=== PATIENT | male | born 1950 | race Caucasian/White ===

== ENCOUNTER → 2018-04-11 10:07 | Outpatient (CLI) | payer MEDICARE, SELFPAY ==
[2018-04-11 10:56] LABS: Hematocrit 43.3 % (41-53); Mean Corpuscular HGB Conc 34.7 % (30-36); Mean Corpuscular Hemoglobin 31.7 PG (26-34); Mean Corpuscular Volume 91.3 fL (80-100); Platelet Count 168 X10^3/uL (150-400); Red Blood Cell Count 4.74 X10^6/uL (4.5-5.9); Red Cell Distribution Width 13.1 % (11.6-14.8); White Blood Cell Count 5.2 X10^3/uL (4.5-11.0)
[2018-04-11 11:28] LABS: Alanine Aminotransferase 38 IU/L (21-72); Albumin 4.5 g/dL (3.5-5.0); Albumin Globulin Ratio 1.6 (1.0-2.8); Alkaline Phosphatase 132 U/L (38-126); Aspartate Aminotransferase 29 IU/L (17-59); BUN Creatinine Ratio 18.3 (6-22); Bilirubin Total 0.4 mg/dL (0.2-1.3); Blood Urea Nitrogen 11 mg/dL (9-20); Calcium 9.2 mg/dL (8.4-10.2); Carbon Dioxide 31 mmol/L (22-32); Chloride 95 mmol/L (98-107); Cholesterol 169 mg/dL (140-199); Estimated Glomerular Filt Rate > 60.0 mL/min (>60); Globulin 2.8 g/dL (1.7-4.1); Glucose 279 mg/dL (80-110); HDL Cholesterol 28 mg/dL (40-60); HEMOLYSIS < 15 (0-50); Potassium 4.7 mmol/L (3.4-5.1); Sodium 139 mmol/L (137-145); Total Protein 7.3 g/dL (6.3-8.2); Triglycerides 493 mg/dL (35-150)
[2018-04-11 11:35] LABS: Hemoglobin A1C% w Est Avg Glu 9.8 % (4.0-6.0)
[2018-04-11 11:50] LABS: Prostate Specific Antigen Scrn 0.787 ng/mL (0.1-4.0)
== END ==
PROVIDERS: PCP Family Medicine; Visit Provider Family Medicine
DX: I10 Essential (primary) hypertension (principal); E11.65 Type 2 diabetes mellitus with hyperglycemia; Z12.5 Encounter for screening for malignant neoplasm of prostate; Z79.899 Other long term (current) drug therapy
CPT/HCPCS: 36415; 80053; 80061; 83036; 85027; G0103

== ENCOUNTER → 2018-08-26 09:48 | Outpatient (CLI) | payer MEDICARE, SELFPAY ==
[2018-08-26 10:49] LABS: Add Manual Diff / Slide Review NO; Basophils Percent Auto 1.2 % (0-2); Eosinophils Percent Auto 3.3 % (2-4); Hematocrit 44.2 % (41-53); Hemoglobin 15.1 g/dL (13.5-17.5); Lymphocytes Percent Auto 22.4 % (25-40); Mean Corpuscular HGB Conc 34.1 % (30-36); Mean Corpuscular Hemoglobin 31.4 PG (26-34); Mean Corpuscular Volume 92.2 fL (80-100); Monocytes Percent Auto 9.2 % (3-14); Neutrophils Absolute Auto 3300 /uL (3000-5900); Neutrophils Percent Auto 63.9 % (50-75); Platelet Count 210 X10^3/uL (150-400); Red Blood Cell Count 4.79 X10^6/uL (4.5-5.9); Red Cell Distribution Width 13.5 % (11.6-14.8); White Blood Cell Count 5.2 X10^3/uL (4.5-11.0)
[2018-08-26 10:54] LABS: Alanine Aminotransferase 41 IU/L (21-72); Albumin 4.6 g/dL (3.5-5.0); Albumin Globulin Ratio 1.6 (1.0-2.8); Alkaline Phosphatase 121 U/L (38-126); Aspartate Aminotransferase 38 IU/L (17-59); Bilirubin Total 0.5 mg/dL (0.2-1.3); Blood Urea Nitrogen 12 mg/dL (9-20); Calcium 9.1 mg/dL (8.4-10.2); Carbon Dioxide 33 mmol/L (22-32); Chloride 96 mmol/L (98-107); Cholesterol 153 mg/dL (140-199); Estimated Glomerular Filt Rate > 60.0 mL/min (>60); Globulin 2.9 g/dL (1.7-4.1); Glucose 276 mg/dL (80-110); HDL Cholesterol 28 mg/dL (40-60); HEMOLYSIS < 15 (0-50); LDL Cholesterol Calculated 69 mg/dL (<100); Potassium 4.7 mmol/L (3.4-5.1); Sodium 142 mmol/L (137-145); Total Protein 7.5 g/dL (6.3-8.2); Triglycerides 281 mg/dL (35-150)
[2018-08-26 11:21] LABS: Prostate Specific Antigen 0.949 ng/mL (0.10-4.00)
== END ==
PROVIDERS: PCP Family Medicine; Visit Provider Family Medicine
DX: E11.65 Type 2 diabetes mellitus with hyperglycemia (principal); I10 Essential (primary) hypertension; Z12.5 Encounter for screening for malignant neoplasm of prostate
CPT/HCPCS: 36415; 80053; 80061; 84153; 85025

== ENCOUNTER → 2019-03-17 11:17 | Outpatient (CLI) | payer MEDICARE, SELFPAY ==
--- NOTE | 2019-03-17 | DI.RAD.S_ITS ---
PROCEDURE: XR SHOULDER RT MIN 2V INDICATIONS: SHOULDER PAIN TECHNIQUE: 3 views of the shoulder were acquired. COMPARISON: [facility], , SHOULDER MINIMUM 2VIEW RIGHT, 12/23/2017, 8:51. FINDINGS: Bones: No fractures or dislocations. No suspicious bony lesions. Mild a.c. joint degenerative arthritis. Visualized ribs appear intact. Soft tissues: No suspicious soft tissue calcifications. IMPRESSION: Mild a.c. joint degenerative arthritis. No acute bony abnormality of the right shoulder. Dictated by: Garo Curiel M.D. on 03/17/2019 at 17:28 Approved by: Garo Curiel M.D. on 03/17/2019 at 17:29
== END ==
PROVIDERS: Family Provider Family Medicine; PCP Family Medicine; Visit Provider Family Medicine
DX: M25.511 Pain in right shoulder (principal); M19.011 Primary osteoarthritis, right shoulder
CPT/HCPCS: 73030

== ENCOUNTER → 2019-07-29 08:57 | Outpatient (CLI) | payer MEDICARE, SELFPAY ==
[2019-07-29 09:23] LABS: Add Manual Diff / Slide Review NO; Basophils Absolute Auto 100 /uL (0-100); Basophils Percent Auto 1.2 % (0-2); Eosinophils Absolute Auto 200 /uL (0-450); Eosinophils Percent Auto 3.5 % (2-4); Hemoglobin 15.3 g/dL (13.5-17.5); Lymphocytes Absolute Auto 1200 /uL (1100-4500); Lymphocytes Percent Auto 23.9 % (25-40); Mean Corpuscular HGB Conc 34.8 % (30-36); Mean Corpuscular Volume 92.1 fL (80-100); Monocytes Absolute Auto 600 /uL (0-900); Monocytes Percent Auto 10.9 % (3-14); Neutrophils Absolute Auto 3100 /uL (1500-7000); Neutrophils Percent Auto 60.5 % (50-75); Platelet Count 199 X10^3/uL (150-400); Red Blood Cell Count 4.77 X10^6/uL (4.5-5.9); Red Cell Distribution Width 13.2 % (11.6-14.8); White Blood Cell Count 5.2 X10^3/uL (4.5-11.0)
[2019-07-29 10:03] LABS: Alanine Aminotransferase 40 IU/L (21-72); Albumin 4.4 g/dL (3.5-5.0); Albumin Globulin Ratio 1.4 (1.0-2.8); Alkaline Phosphatase 109 U/L (38-126); Aspartate Aminotransferase 38 IU/L (17-59); Bilirubin Total 0.4 mg/dL (0.2-1.3); Blood Urea Nitrogen 14 mg/dL (9-20); Calcium 9.3 mg/dL (8.4-10.2); Carbon Dioxide 27 mmol/L (22-32); Chloride 102 mmol/L (98-107); Cholesterol 150 mg/dL (140-199); Estimated Glomerular Filt Rate > 60.0 mL/min (>60); Globulin 3.1 g/dL (1.7-4.1); Glucose 164 mg/dL (80-110); HDL Cholesterol 28 mg/dL (40-60); HEMOLYSIS 15 (0-50); LDL Cholesterol Calculated 78 mg/dL (<100); Potassium 4.2 mmol/L (3.4-5.1); Sodium 138 mmol/L (137-145); Total Protein 7.5 g/dL (6.3-8.2); Triglycerides 220 mg/dL (35-150)
== END ==
PROVIDERS: PCP Family Medicine; Visit Provider Family Medicine
DX: E11.65 Type 2 diabetes mellitus with hyperglycemia (principal); E66.9 Obesity, unspecified; I10 Essential (primary) hypertension; Z79.899 Other long term (current) drug therapy
CPT/HCPCS: 36415; 80053; 80061; 85025

== ENCOUNTER → 2019-10-20 10:57 | Outpatient (CLI) | payer MEDICARE, SELFPAY ==
[2019-10-20 11:37] LABS: Add Manual Diff / Slide Review NO; Basophils Absolute Auto 100 /uL (0-100); Basophils Percent Auto 1.1 % (0-2); Eosinophils Absolute Auto 300 /uL (0-450); Eosinophils Percent Auto 6.3 % (2-4); Lymphocytes Absolute Auto 1200 /uL (1100-4500); Lymphocytes Percent Auto 22.1 % (25-40); Mean Corpuscular Hemoglobin 30.8 PG (26-34); Mean Corpuscular Volume 90.8 fL (80-100); Monocytes Absolute Auto 500 /uL (0-900); Neutrophils Absolute Auto 3300 /uL (1500-7000); Neutrophils Percent Auto 61.5 % (50-75); Platelet Count 181 X10^3/uL (150-400); Red Blood Cell Count 5.18 X10^6/uL (4.5-5.9); Red Cell Distribution Width 13.6 % (11.6-14.8); White Blood Cell Count 5.4 X10^3/uL (4.5-11.0)
[2019-10-20 12:07] LABS: Alanine Aminotransferase 32 IU/L (<50); Albumin 4.7 g/dL (3.5-5.0); Albumin Globulin Ratio 1.7 (1.0-2.8); Alkaline Phosphatase 74 U/L (38-126); Aspartate Aminotransferase 34 IU/L (17-59); Bilirubin Total 0.7 mg/dL (0.2-1.3); Blood Urea Nitrogen 14 mg/dL (9-20); Calcium 9.2 mg/dL (8.4-10.2); Carbon Dioxide 24 mmol/L (22-32); Chloride 104 mmol/L (98-107); Cholesterol 158 mg/dL (140-199); Estimated Glomerular Filt Rate > 60.0 mL/min (>60); Globulin 2.7 g/dL (1.7-4.1); Glucose 137 mg/dL (80-110); HDL Cholesterol 30 mg/dL (40-60); HEMOLYSIS 15 (0-50); LDL Cholesterol Calculated 85 mg/dL (<100); Potassium 4.5 mmol/L (3.4-5.1); Sodium 139 mmol/L (137-145); Total Protein 7.4 g/dL (6.3-8.2); Triglycerides 217 mg/dL (35-150)
[2019-10-20 12:39] LABS: Prostate Specific Antigen 0.962 ng/mL (0.10-4.00)
== END ==
PROVIDERS: PCP Family Medicine; Visit Provider Family Medicine
DX: E11.65 Type 2 diabetes mellitus with hyperglycemia (principal); I10 Essential (primary) hypertension
CPT/HCPCS: 36415; 80053; 80061; 84153; 85025

== ENCOUNTER → 2020-07-21 08:07 | Outpatient (CLI) | payer MEDICARE, SELFPAY ==
[2020-07-21 08:37] LABS: Hemoglobin 14.4 g/dL (13.5-17.5); Mean Corpuscular HGB Conc 34.2 % (30-36); Mean Corpuscular Volume 93.4 fL (80-100); Platelet Count 197 X10^3/uL (150-400); Red Cell Distribution Width 13.1 % (11.6-14.8); White Blood Cell Count 5.9 X10^3/uL (4.5-11.0)
[2020-07-21 08:55] LABS: Alanine Aminotransferase 32 IU/L (<50); Albumin 4.6 g/dL (3.5-5.0); Albumin Globulin Ratio 1.7 (1.0-2.8); Alkaline Phosphatase 86 U/L (38-126); Aspartate Aminotransferase 37 IU/L (17-59); BUN Creatinine Ratio 26.9 (6-22); Bilirubin Total 0.6 mg/dL (0.2-1.3); Blood Urea Nitrogen 18 mg/dL (9-20); Calcium 9.4 mg/dL (8.4-10.2); Carbon Dioxide 30 mmol/L (22-32); Chloride 97 mmol/L (98-107); Cholesterol 154 mg/dL (140-199); Estimated Glomerular Filt Rate > 60.0 mL/min (>60); Globulin 2.7 g/dL (1.7-4.1); Glucose 169 mg/dL (80-110); HDL Cholesterol 32 mg/dL (40-60); HEMOLYSIS < 15 (0-50); LDL Cholesterol Calculated 59 mg/dL (<100); Potassium 4.5 mmol/L (3.4-5.1); Sodium 137 mmol/L (137-145); Total Protein 7.3 g/dL (6.3-8.2); Triglycerides 315 mg/dL (35-150)
[2020-07-21 09:24] LABS: Prostate Specific Antigen 0.838 ng/mL (0.10-4.00)
== END ==
PROVIDERS: PCP Family Medicine; Referring Provider Family Medicine; Visit Provider Family Medicine
DX: E11.65 Type 2 diabetes mellitus with hyperglycemia (principal); I10 Essential (primary) hypertension; Z79.899 Other long term (current) drug therapy; Z12.5 Encounter for screening for malignant neoplasm of prostate
CPT/HCPCS: 36415; 80053; 80061; 84153; 85027

== ENCOUNTER → 2021-04-07 08:25 | Outpatient (CLI) | payer MEDICARE, SELFPAY ==
[2021-04-07 09:32] LABS: Add Manual Diff / Slide Review NO; Basophils Absolute Auto 0 /uL (0-100); Eosinophils Absolute Auto 200 /uL (0-450); Eosinophils Percent Auto 4.2 % (2-4); Hemoglobin 15.2 g/dL (13.5-17.5); Lymphocytes Absolute Auto 1200 /uL (1100-4500); Lymphocytes Percent Auto 23.4 % (25-40); Mean Corpuscular HGB Conc 34.5 % (30-36); Monocytes Absolute Auto 500 /uL (0-900); Monocytes Percent Auto 10.9 % (3-14); Neutrophils Absolute Auto 3000 /uL (1500-7000); Neutrophils Percent Auto 60.5 % (50-75); Platelet Count 182 X10^3/uL (150-400); Red Blood Cell Count 4.73 X10^6/uL (4.5-5.9); White Blood Cell Count 4.9 X10^3/uL (4.5-11.0)
[2021-04-07 09:36] LABS: Hemoglobin A1C% w Est Avg Glu 11.5 % (4.0-6.0)
[2021-04-07 09:46] LABS: Alanine Aminotransferase 40 IU/L (<50); Albumin 4.4 g/dL (3.5-5.0); Albumin Globulin Ratio 1.3 (1.0-2.8); Alkaline Phosphatase 133 U/L (38-126); Aspartate Aminotransferase 55 IU/L (17-59); BUN Creatinine Ratio 25.6 (6-22); Bilirubin Total 0.5 mg/dL (0.2-1.3); Blood Urea Nitrogen 11 mg/dL (9-20); Calcium 9.3 mg/dL (8.4-10.2); Carbon Dioxide 28 mmol/L (22-32); Chloride 100 mmol/L (98-107); Cholesterol 139 mg/dL (140-199); Estimated Glomerular Filt Rate > 60.0 mL/min (>60); Globulin 3.3 g/dL (1.7-4.1); Glucose 230 mg/dL (80-110); HDL Cholesterol 28 mg/dL (40-60); HEMOLYSIS 24 (0-50); LDL Cholesterol Calculated 61 mg/dL (<100); Potassium 4.3 mmol/L (3.4-5.1); Sodium 136 mmol/L (137-145); Total Protein 7.7 g/dL (6.3-8.2); Triglycerides 251 mg/dL (35-150)
[2021-04-07 10:13] LABS: Prostate Specific Antigen Scrn 0.785 ng/mL (0.1-4.0)
== END ==
PROVIDERS: PCP Family Medicine; Referring Provider Family Medicine; Visit Provider Family Medicine
DX: E11.65 Type 2 diabetes mellitus with hyperglycemia (principal); E78.1 Pure hyperglyceridemia; I10 Essential (primary) hypertension; E66.9 Obesity, unspecified; Z79.899 Other long term (current) drug therapy; M12.89 Other specific arthropathies, not elsewhere classified, multiple sites; R07.9 Chest pain, unspecified; Z12.5 Encounter for screening for malignant neoplasm of prostate
CPT/HCPCS: 36415; 80053; 80061; 83036; 85025; G0103

== ENCOUNTER → 2021-11-10 08:18 | Outpatient (CLI) | payer MEDICARE, SELFPAY ==
[2021-11-10 08:43] LABS: Add Manual Diff / Slide Review NO; Basophils Absolute Auto 100 /uL (0-100); Basophils Percent Auto 1.1 % (0-2); Eosinophils Absolute Auto 200 /uL (0-450); Eosinophils Percent Auto 3.4 % (2-4); Hematocrit 44.9 % (41-53); Hemoglobin 15.2 g/dL (13.5-17.5); Lymphocytes Absolute Auto 1200 /uL (1100-4500); Lymphocytes Percent Auto 22.6 % (25-40); Mean Corpuscular HGB Conc 33.9 % (30-36); Mean Corpuscular Hemoglobin 31.4 PG (26-34); Mean Corpuscular Volume 92.6 fL (80-100); Monocytes Absolute Auto 500 /uL (0-900); Monocytes Percent Auto 9.3 % (3-14); Neutrophils Absolute Auto 3400 /uL (1500-7000); Neutrophils Percent Auto 63.6 % (50-75); Platelet Count 173 X10^3/uL (150-400); Red Blood Cell Count 4.85 X10^6/uL (4.5-5.9); Red Cell Distribution Width 13.3 % (11.6-14.8); White Blood Cell Count 5.3 X10^3/uL (4.5-11.0)
[2021-11-10 08:54] LABS: Hemoglobin A1C% w Est Avg Glu 12.3 % (4.0-6.0)
[2021-11-10 08:55] LABS: Alanine Aminotransferase 39 IU/L (<50); Albumin 4.5 g/dL (3.5-5.0); Albumin Globulin Ratio 1.6 (1.0-2.8); Alkaline Phosphatase 150 U/L (38-126); Aspartate Aminotransferase 42 IU/L (17-59); BUN Creatinine Ratio 23.2 (6-22); Bilirubin Total 0.6 mg/dL (0.2-1.3); Blood Urea Nitrogen 13 mg/dL (9-20); Calcium 9.1 mg/dL (8.4-10.2); Carbon Dioxide 30 mmol/L (22-32); Chloride 97 mmol/L (98-107); Cholesterol 175 mg/dL (140-199); Estimated Glomerular Filt Rate > 60.0 mL/min (>60); Globulin 2.9 g/dL (1.7-4.1); Glucose 333 mg/dL (80-110); HDL Cholesterol 38 mg/dL (40-60); HEMOLYSIS < 15 (0-50); LDL Cholesterol Calculated 87 mg/dL (<100); Potassium 4.5 mmol/L (3.4-5.1); Sodium 133 mmol/L (137-145); Total Protein 7.4 g/dL (6.3-8.2); Triglycerides 248 mg/dL (35-150)
== END ==
PROVIDERS: PCP Family Medicine; Referring Provider Family Medicine; Visit Provider Family Medicine
DX: E11.65 Type 2 diabetes mellitus with hyperglycemia (principal); I10 Essential (primary) hypertension; E66.9 Obesity, unspecified; M19.90 Unspecified osteoarthritis, unspecified site; E78.1 Pure hyperglyceridemia; Z79.899 Other long term (current) drug therapy
CPT/HCPCS: 36415; 80053; 80061; 83036; 85025

== ENCOUNTER → 2022-01-26 08:41 | Outpatient (CLI) | payer MEDICARE, OTHER, SELFPAY ==
[2022-01-26 09:37] LABS: Add Manual Diff / Slide Review NO; Basophils Absolute Auto 0 /uL (0-100); Basophils Percent Auto 0.7 % (0-2); Eosinophils Absolute Auto 200 /uL (0-450); Eosinophils Percent Auto 3.4 % (2-4); Hematocrit 42.6 % (41-53); Hemoglobin 14.5 g/dL (13.5-17.5); Lymphocytes Absolute Auto 1300 /uL (1100-4500); Lymphocytes Percent Auto 25.1 % (25-40); Mean Corpuscular HGB Conc 33.9 % (30-36); Mean Corpuscular Hemoglobin 31.9 PG (26-34); Monocytes Absolute Auto 500 /uL (0-900); Monocytes Percent Auto 9.5 % (3-14); Neutrophils Absolute Auto 3300 /uL (1500-7000); Neutrophils Percent Auto 61.3 % (50-75); Platelet Count 169 X10^3/uL (150-400); Red Blood Cell Count 4.53 X10^6/uL (4.5-5.9); Red Cell Distribution Width 13.9 % (11.6-14.8); White Blood Cell Count 5.3 X10^3/uL (4.5-11.0)
[2022-01-26 09:52] LABS: Alanine Aminotransferase 45 IU/L (<50); Albumin 4.6 g/dL (3.5-5.0); Albumin Globulin Ratio 1.5 (1.0-2.8); Alkaline Phosphatase 90 U/L (38-126); Aspartate Aminotransferase 45 IU/L (17-59); BUN Creatinine Ratio 26.3 (6-22); Bilirubin Total 0.6 mg/dL (0.2-1.3); Blood Urea Nitrogen 15 mg/dL (9-20); Calcium 8.8 mg/dL (8.4-10.2); Carbon Dioxide 25 mmol/L (22-32); Chloride 106 mmol/L (98-107); Cholesterol 167 mg/dL (140-199); Estimated Glomerular Filt Rate > 60.0 mL/min (>60); Glucose 181 mg/dL (80-110); HDL Cholesterol 35 mg/dL (40-60); HEMOLYSIS < 15 (0-50); LDL Cholesterol Calculated 87 mg/dL (<100); Potassium 4.1 mmol/L (3.4-5.1); Sodium 140 mmol/L (137-145); Total Protein 7.6 g/dL (6.3-8.2); Triglycerides 226 mg/dL (35-150)
[2022-01-26 10:24] LABS: Prostate Specific Antigen 0.643 ng/mL (0.10-4.00)
[2022-01-26 10:30] LABS: Vitamin D 25 Hydroxy (D3) 37.1 ng/mL (30.0-100.0)
[2022-01-26 10:43] LABS: Vitamin B12 301 pg/mL (239-931)
[2022-01-26 11:18] LABS: Thyroid Stimulating Hormone 1.45 uIU/mL (0.47-4.68)
[2022-01-26 14:29] LABS: Free T4, Direct Thyroxine 1.29 ng/dL (0.78-2.19)
== END ==
PROVIDERS: PCP Family Medicine; Referring Provider Family Medicine; Visit Provider Family Medicine
DX: E11.65 Type 2 diabetes mellitus with hyperglycemia (principal); I10 Essential (primary) hypertension; E66.9 Obesity, unspecified; Z12.5 Encounter for screening for malignant neoplasm of prostate; Z79.899 Other long term (current) drug therapy
CPT/HCPCS: 36415; 80053; 80061; 82306; 82607; 83735; 84153; 84439; 84443; 85025; G0103

== ENCOUNTER → 2022-06-08 10:50 | Outpatient (CLI) | payer MEDICARE, OTHER, SELFPAY ==
[2022-06-08 11:59] LABS: Add Manual Diff / Slide Review NO; Basophils Percent Auto 1.1 % (0-2); Hematocrit 42.1 % (41-53); Hemoglobin 14.5 g/dL (13.5-17.5); Lymphocytes Absolute Auto 1000 /uL (1100-4500); Lymphocytes Percent Auto 22.2 % (25-40); Mean Corpuscular HGB Conc 34.5 % (30-36); Mean Corpuscular Hemoglobin 31.8 PG (26-34); Mean Corpuscular Volume 92.1 fL (80-100); Monocytes Absolute Auto 500 /uL (0-900); Neutrophils Absolute Auto 2900 /uL (1500-7000); Neutrophils Percent Auto 62.7 % (50-75); Platelet Count 162 X10^3/uL (150-400); Red Blood Cell Count 4.57 X10^6/uL (4.5-5.9); Red Cell Distribution Width 13.7 % (11.6-14.8); White Blood Cell Count 4.7 X10^3/uL (4.5-11.0)
[2022-06-08 12:00] LABS: Basophils Absolute Auto 100 /uL (0-100); Eosinophils Absolute Auto 200 /uL (0-450)
[2022-06-08 12:17] LABS: Alanine Aminotransferase 37 IU/L (<50); Albumin 4.5 g/dL (3.5-5.0); Albumin Globulin Ratio 1.5 (1.0-2.8); Alkaline Phosphatase 144 U/L (38-126); Aspartate Aminotransferase 45 IU/L (17-59); Bilirubin Total 0.6 mg/dL (0.2-1.3); Blood Urea Nitrogen 12 mg/dL (9-20); Calcium 9.1 mg/dL (8.4-10.2); Carbon Dioxide 25 mmol/L (22-32); Chloride 98 mmol/L (98-107); Cholesterol 167 mg/dL (140-199); Estimated Glomerular Filt Rate > 60 mL/min (>60); Globulin 3.1 g/dL (1.7-4.1); Glucose 367 mg/dL (80-110); HDL Cholesterol 25 mg/dL (40-60); HEMOLYSIS < 15 (0-50); Potassium 4.5 mmol/L (3.4-5.1); Sodium 134 mmol/L (137-145); Total Protein 7.6 g/dL (6.3-8.2); Triglycerides 453 mg/dL (35-150)
[2022-06-08 12:21] LABS: Hemoglobin A1C% w Est Avg Glu 11.6 % (4.0-6.0)
[2022-06-08 12:57] LABS: Vitamin D 25 Hydroxy (D3) 25.6 ng/mL (30.0-100.0)
[2022-06-08 13:05] LABS: Vitamin B12 268 pg/mL (239-931)
[2022-06-08 13:13] LABS: Thyroid Stimulating Hormone 1.89 uIU/mL (0.47-4.68)
== END ==
PROVIDERS: PCP Family Medicine; Referring Provider Family Medicine; Visit Provider Family Medicine
DX: E11.65 Type 2 diabetes mellitus with hyperglycemia (principal); E55.9 Vitamin D deficiency, unspecified; I10 Essential (primary) hypertension; M54.50 Low back pain, unspecified; E66.8 Other obesity; E78.1 Pure hyperglyceridemia; Z79.899 Other long term (current) drug therapy
CPT/HCPCS: 36415; 80053; 80061; 82306; 82607; 83036; 83735; 84443; 85025

== ENCOUNTER → 2022-10-10 09:49 | Outpatient (CLI) | payer MEDICARE, OTHER, SELFPAY ==
[2022-10-10 11:20] LABS: Add Manual Diff / Slide Review NO; Basophils Absolute Auto 0 /uL (0-100); Basophils Percent Auto 0.9 % (0-2); Eosinophils Absolute Auto 200 /uL (0-450); Eosinophils Percent Auto 4.5 % (2-4); Hemoglobin 14.5 g/dL (13.5-17.5); Lymphocytes Absolute Auto 1200 /uL (1100-4500); Lymphocytes Percent Auto 27.1 % (25-40); Mean Corpuscular HGB Conc 33.8 % (30-36); Mean Corpuscular Volume 91.7 fL (80-100); Monocytes Absolute Auto 500 /uL (0-900); Monocytes Percent Auto 11.5 % (3-14); Neutrophils Absolute Auto 2500 /uL (1500-7000); Platelet Count 158 X10^3/uL (150-400); Red Blood Cell Count 4.69 X10^6/uL (4.5-5.9); Red Cell Distribution Width 13.6 % (11.6-14.8); White Blood Cell Count 4.4 X10^3/uL (4.5-11.0)
[2022-10-10 11:53] LABS: Alanine Aminotransferase 32 IU/L (<50); Albumin 4.4 g/dL (3.5-5.0); Albumin Globulin Ratio 1.4 (1.0-2.8); Alkaline Phosphatase 155 U/L (38-126); Aspartate Aminotransferase 38 IU/L (17-59); BUN Creatinine Ratio 29.3 (6-22); Bilirubin Total 0.6 mg/dL (0.2-1.3); Blood Urea Nitrogen 12 mg/dL (9-20); Carbon Dioxide 26 mmol/L (22-32); Chloride 98 mmol/L (98-107); Cholesterol 168 mg/dL (140-199); Estimated Glomerular Filt Rate > 60 mL/min (>60); Globulin 3.1 g/dL (1.7-4.1); Glucose 264 mg/dL (80-110); HDL Cholesterol 26 mg/dL (40-60); HEMOLYSIS < 15 (0-50); Sodium 136 mmol/L (137-145); Total Protein 7.5 g/dL (6.3-8.2); Triglycerides 413 mg/dL (35-150)
[2022-10-10 12:09] LABS: Vitamin D 25 Hydroxy (D3) 37.6 ng/mL (30.0-100.0)
[2022-10-10 12:21] LABS: Thyroid Stimulating Hormone 2.26 uIU/mL (0.47-4.68)
[2022-10-10 12:22] LABS: Prostate Specific Antigen 0.505 ng/mL (0.10-4.00)
[2022-10-10 12:41] LABS: Vitamin B12 281 pg/mL (239-931)
== END ==
PROVIDERS: PCP Family Medicine; Referring Provider Family Medicine; Visit Provider Family Medicine
DX: E11.65 Type 2 diabetes mellitus with hyperglycemia (principal); Z79.899 Other long term (current) drug therapy; I10 Essential (primary) hypertension; E66.9 Obesity, unspecified; E78.1 Pure hyperglyceridemia
CPT/HCPCS: 36415; 80053; 80061; 82306; 82607; 84153; 84443; 85025

== ENCOUNTER 2023-02-21 11:01 | Emergency (ER) | payer MEDICARE, OTHER, SELFPAY ==
[2023-02-21 11:06] VITALS: BP 173/75; PULSE 67; RESP 16; TEMP 36.6; O2SAT 94; BMI 37.5
--- NOTE | 2023-02-21 11:08 | ED_ITS ---
HPI - Extremity Injury (Lower) General Chief Complaint: Extremity Injury, Lower Stated Complaint: Left foot pain dropped a weight on it Time Seen by Provider: 02/21/23 11:08 History of Present Illness HPI Narrative: 72-year-old male nonsmoker with history of type 2 diabetes and neuropathy presents with his in the chief complaint of an injury to his left foot 2 days ago. He states that he was working on a grandfather clock and 1 of the heavy weights from the pendulum fell on the dorsum of his left foot and he suffered a superficial abrasion and some bruising. There is no significant laceration and patient has little if any pain. Patient denies any chest pain or shortness of breath and has no nausea or vomiting Related Data Allergies Allergy/AdvReac Type Severity Reaction Status Date / Time No Known Drug Allergies Allergy Verified 02/21/23 11:06 Review of Systems Review of Systems Narrative: GENERAL: Denies chills, fatigue, malaise, fever, sweats. HEENT: Denies sinus pain, ear pain, sore throat, difficulty swallowing, dizziness. RESPIRATORY: Denies dyspnea, cough, wheezing, hemoptysis, sputum. CARDIOVASCULAR: Denies chest pain, palpitations, orthopnea, edema, GASTROINTESTINAL: Denies nausea, vomiting, abdominal pain, diarrhea, constipation, melena. : Denies dysuria, frequency, incontinence, hematuria, urinary retention. MUSCULOSKELETAL: See HPI SKIN: See HPI NEUROLOGIC: Denies weakness, headache, numbness, change in speech, confusion, seizures, incoordination. PSYCHIATRIC: No concerning psychosocial issues. 12 point review of systems is negative except for those stated above Patient History Social History Smoking Status: Unknown if ever smoked Exam Narrative Exam Narrative: GEN: AOx3 and in mild distress EYES: Pupils are equal, round, and reactive to light and accommodation. Extraoccular muscles are intact bilaterally. There is no subconjunctival hemorrhage or exudate. CHEST: Lungs are clear to auscultation bilaterally and free of wheezes, rales, or rhonchi. Heart rate is regular rhythm, there are no murmurs, clicks, rubs, or gallops. There is no chest wall tenderness. ABD: Abdomen is soft and nontender. There is no guarding or rebound. Bowel sounds are normal in all 4 quadrants. There is no mass or organomegaly. EXT: Superficial abrasion over dorsum of foot, no depth to warrant sutures, no obvious deformity, neurovascular status at baseline, there is some ecchymosis just distal to the wound. Full painless ROM of all extremities with no loss of sensation or strength. SKIN: Warm, pink, and dry. No erythema or rash Initial Vital Signs Initial Vital Signs: Vital Signs Temperature 97.9 F 02/21/23 11:06 Pulse Rate 67 02/21/23 11:06 Respiratory Rate 16 02/21/23 11:06 Blood Pressure 173/75 H 02/21/23 11:06 Pulse Oximetry 94 02/21/23 11:06 Oxygen Delivery Method Room Air 02/21/23 11:06 Procedures Orthopedic Splinting/Casting Injury #1: Side: left Lower Extremity Injury Location: foot Lower Extremity Immobilizer: post-op shoe Post splinting neuro exam: intact Post splinting vascular exam: intact Placed by: Nursing Course Orders Ordered: ED Orders 02/21/23 11:09 XR foot LT min 3V Stat Vital Signs Vital signs: Vital Signs - 8 hr 02/21/23 11:06 Temperature 97.9 F Pulse Rate 67 Respiratory Rate 16 Blood Pressure 173/75 H Pulse Oximetry 94 Oxygen Delivery Method Room Air MDM - Extremity Injury (Lower) MDM Narrative Medical decision making narrative: [72] year old patient presents with left foot pain after dropping a weight it Multiple etiologies for patient's symptoms considered including, but not limited to: [Fracture, dislocation, ligamentous injury, laceration versus other] Prior Charts reviewed in our EMR Primary Historian: patient Imaging reviewed: Patient's symptoms improved over duration of stay with above-stated therapies. Findings and discharge diagnosis discussed with patient/family followed by verbalization of understanding Return precautions discussed with patient/family whom verbalize understanding of diagnosis and plan Discharge Plan Departure Patient Disposition: Home Clinical Impression: Contusion of foot, left Qualifiers: Encounter type: initial encounter Qualified Code(s): S90.32XA - Contusion of left foot, initial encounter Instructions: DI for Contusion Activity Restrictions/Additional Instructions: *You have been diagnosed with [left foot contusion with superficial abrasion. As we discussed your x-ray is without significant abnormality] *What to do: *Please continue to take your regular medications as directed. [ ] New medication prescriptions sent to your pharmacy: [ ] [ ] New medication written as a paper prescription [ ] No new medications given *Please follow up with your primary care provider in 2-3 days, call for an appointment. Let them know you were seen in the Emergency Department and that we ask that you be seen in follow up. We will electronically transmit a record of today's note if your PCP is in our system *If you do not have a primary care provider please contact the [facility] Resource line at [phone]. They will ask some questions about your medical history and help get you set up with a doctor in the community. *Return to Emergency Department if you should have any new, worsening or concerning symptoms, such as [fever greater than 101 F, shaking chills, worsening pain, persistent vomiting or other bothersome symptoms] Referrals: Cristian Go MD [Primary Care Provider] - Stand Alone Forms: Patient Portal/API
--- NOTE | 2023-02-21 11:09 | DI.RAD.S_ITS ---
PROCEDURE: XR FOOT LT MIN 3V INDICATIONS: dropped weight on foot 2 days ago TECHNIQUE: 3 views of the foot were acquired. COMPARISON: None. FINDINGS: Bones: No fractures or dislocations. No suspicious bony lesions. Calcaneal enthesophytes. Soft tissues: No tibiotalar joint effusion. Achilles tendon appears normal. IMPRESSION: No displaced fracture. Dictated by: Lars Horton M.D. on 02/21/2023 at 11:44 Approved by: Lars Horton M.D. on 02/21/2023 at 11:44
== END 2023-02-21 12:15 | disposition home or self-care (01) ==
PROVIDERS: Emergency Provider Emergency Medicine; PCP Family Medicine
DX: S90.32XA Contusion of left foot, initial encounter (principal); W22.8XXA Striking against or struck by other objects, initial encounter
CPT/HCPCS: 73630; 99281; 99283

== ENCOUNTER → 2023-02-27 09:30 | Outpatient (CLI) | payer MEDICARE, OTHER, SELFPAY ==
[2023-02-27 10:27] LABS: Add Manual Diff / Slide Review NO; Basophils Absolute Auto 0 /uL (0-100); Basophils Percent Auto 0.9 % (0-2); Eosinophils Absolute Auto 300 /uL (0-450); Eosinophils Percent Auto 6.4 % (2-4); Hematocrit 41.8 % (41-53); Hemoglobin 14.2 g/dL (13.5-17.5); Lymphocytes Absolute Auto 1200 /uL (1100-4500); Lymphocytes Percent Auto 26.4 % (25-40); Mean Corpuscular HGB Conc 33.9 % (30-36); Mean Corpuscular Hemoglobin 31.5 PG (26-34); Mean Corpuscular Volume 92.8 fL (80-100); Monocytes Absolute Auto 500 /uL (0-900); Monocytes Percent Auto 11.1 % (3-14); Neutrophils Absolute Auto 2600 /uL (1500-7000); Neutrophils Percent Auto 55.2 % (50-75); Platelet Count 157 X10^3/uL (150-400); Red Cell Distribution Width 13.6 % (11.6-14.8); White Blood Cell Count 4.7 X10^3/uL (4.5-11.0)
[2023-02-27 11:25] LABS: Vitamin D 25 Hydroxy (D3) 31.5 ng/mL (30.0-100.0)
[2023-02-27 11:26] LABS: Alanine Aminotransferase 32 IU/L (<50); Albumin 4.3 g/dL (3.5-5.0); Albumin Globulin Ratio 1.5 (1.0-2.8); Alkaline Phosphatase 147 U/L (38-126); Aspartate Aminotransferase 39 IU/L (17-59); BUN Creatinine Ratio 21.7 (6-22); Bilirubin Total 0.6 mg/dL (0.2-1.3); Blood Urea Nitrogen 10 mg/dL (9-20); Calcium 9.1 mg/dL (8.4-10.2); Carbon Dioxide 29 mmol/L (22-32); Chloride 97 mmol/L (98-107); Cholesterol 157 mg/dL (140-199); Estimated Glomerular Filt Rate > 60 mL/min (>60); Globulin 2.9 g/dL (1.7-4.1); Glucose 264 mg/dL (80-110); HDL Cholesterol 30 mg/dL (40-60); HEMOLYSIS < 15 (0-50); LDL Cholesterol Calculated 72 mg/dL (<100); Potassium 4.5 mmol/L (3.4-5.1); Sodium 134 mmol/L (137-145); Total Protein 7.2 g/dL (6.3-8.2); Triglycerides 277 mg/dL (35-150)
[2023-02-27 11:41] LABS: Prostate Specific Antigen Scrn 0.486 ng/mL (0.1-4.0)
[2023-02-27 12:00] LABS: Vitamin B12 291 pg/mL (239-931)
[2023-02-28 09:45] LABS: Labcorp Hemoglobin (Hb) A1c 11.9 % (4.8-5.6)
== END ==
PROVIDERS: PCP Family Medicine; Referring Provider Family Medicine; Visit Provider Family Medicine
DX: E11.65 Type 2 diabetes mellitus with hyperglycemia (principal); E55.9 Vitamin D deficiency, unspecified; E66.9 Obesity, unspecified; I10 Essential (primary) hypertension; E78.1 Pure hyperglyceridemia
CPT/HCPCS: 36415; 80053; 80061; 82306; 82607; 83036; 85025; G0103

== ENCOUNTER → 2023-09-05 08:03 | Outpatient (CLI) | payer MEDICARE, OTHER, SELFPAY ==
--- NOTE | 2023-09-05 08:07 | DI.RAD.S_ITS ---
PROCEDURE: XR CHEST 2V INDICATIONS: COUGH TECHNIQUE: 2 views of the chest were acquired. COMPARISON: [facility], THORACIC SPINE 3 VIEWS, 01/18/2015, 7:37. [facility], CHEST 2 VIEW, 11/20/2014, 13:25. FINDINGS: Surgical changes and devices: None. Lungs and pleura: Bilateral lower lobe linear atelectasis. The lungs are otherwise clear. No pleural effusions or pneumothorax. Mediastinum: Mediastinal contours are normal. Heart size is normal. Aorta is tortuous, as before. Bones and chest wall: No suspicious bony abnormalities. Mild multilevel degenerative changes of the spine. Increased soft tissue attenuation in the chest wall, slightly more conspicuous compared to prior, best seen on lateral view. IMPRESSION: 1. No acute cardiopulmonary process. 2. Increased soft tissue attenuation in the chest wall, slightly more conspicuous compared to prior. Findings may represent gynecomastia. Correlate with physical exam for a mass. Dictated by: Yaakov Tenorio M.D. on 09/05/2023 at 11:28 Approved by: Yaakov Tenorio M.D. on 09/05/2023 at 11:36
[2023-09-05 09:56] LABS: Add Manual Diff / Slide Review NO; Basophils Absolute Auto 0 /uL (0-100); Basophils Percent Auto 1.2 % (0-2); Eosinophils Absolute Auto 200 /uL (0-450); Eosinophils Percent Auto 4.1 % (2-4); Hematocrit 43.4 % (41-53); Hemoglobin 14.7 g/dL (13.5-17.5); Lymphocytes Absolute Auto 1200 /uL (1100-4500); Lymphocytes Percent Auto 30.1 % (25-40); Mean Corpuscular HGB Conc 33.9 % (30-36); Mean Corpuscular Hemoglobin 31.3 PG (26-34); Mean Corpuscular Volume 92.3 fL (80-100); Monocytes Absolute Auto 500 /uL (0-900); Monocytes Percent Auto 12.1 % (3-14); Neutrophils Absolute Auto 2100 /uL (1500-7000); Neutrophils Percent Auto 52.5 % (50-75); Platelet Count 140 X10^3/uL (150-400); Red Cell Distribution Width 13.4 % (11.6-14.8); White Blood Cell Count 3.9 X10^3/uL (4.5-11.0)
[2023-09-05 10:18] LABS: Alanine Aminotransferase 29 IU/L (<50); Albumin 4.3 g/dL (3.5-5.0); Albumin Globulin Ratio 1.6 (1.0-2.8); Alkaline Phosphatase 146 U/L (38-126); Aspartate Aminotransferase 32 IU/L (17-59); BUN Creatinine Ratio 21.3 (6-22); Bilirubin Total 0.6 mg/dL (0.2-1.3); Blood Urea Nitrogen 10 mg/dL (9-20); Calcium 9.3 mg/dL (8.4-10.2); Carbon Dioxide 27 mmol/L (22-32); Chloride 96 mmol/L (98-107); Cholesterol 168 mg/dL (140-199); Estimated Glomerular Filt Rate > 60 mL/min (>60); Globulin 2.7 g/dL (1.7-4.1); Glucose 288 mg/dL (80-110); HDL Cholesterol 31 mg/dL (40-60); HEMOLYSIS < 15 (0-50); LDL Cholesterol Calculated 70 mg/dL (<100); Magnesium 1.8 mg/dL (1.6-2.3); Potassium 4.1 mmol/L (3.4-5.1); Sodium 134 mmol/L (137-145); Triglycerides 336 mg/dL (35-150)
[2023-09-05 10:38] LABS: Vitamin D 25 Hydroxy (D3) 32.4 ng/mL (30.0-100.0)
[2023-09-05 10:51] LABS: Thyroid Stimulating Hormone 3.07 uIU/mL (0.47-4.68)
[2023-09-05 11:05] LABS: Vitamin B12 277 pg/mL (239-931)
[2023-09-05 12:24] LABS: T7 (Free Thyroxine Index) 3.35 (1.65-3.89); Triiodothryronine T3 Uptake 31.3 % (23.5-40.5)
== END ==
PROVIDERS: PCP Family Medicine; Referring Provider Family Medicine; Visit Provider Family Medicine
DX: I10 Essential (primary) hypertension (principal); E55.9 Vitamin D deficiency, unspecified; R05.9 Cough, unspecified; E11.65 Type 2 diabetes mellitus with hyperglycemia; M19.90 Unspecified osteoarthritis, unspecified site; M12.89 Other specific arthropathies, not elsewhere classified, multiple sites; E66.9 Obesity, unspecified; Z79.899 Other long term (current) drug therapy
CPT/HCPCS: 36415; 71046; 80053; 80061; 82306; 82607; 83735; 84436; 84443; 84479; 85025

== ENCOUNTER → 2023-09-26 09:11 | Outpatient (CLI) | payer MEDICARE, OTHER, SELFPAY ==
--- NOTE | 2023-09-26 | DI.CT.S_ITS ---
PROCEDURE: CT CHEST ABDOMEN WO CON INDICATIONS: Pleural plaque without asbestos TECHNIQUE: After the administration of oral contrast, 5 mm thick sections acquired from the pulmonary apices to the iliac crests. 5 mm thick coronal and sagittal reformats acquired, with additional 7 mm coronal MIP reformats through the lungs. For radiation dose reduction, the following was used: automated exposure control, adjustment of mA and/or kV according to patient size. COMPARISON: [facility], CR, XR CHEST 2V, 09/05/2023, 8:40. FINDINGS: Image quality: Excellent. CHEST: Lungs and pleura: No acute pulmonary opacities. Linear and bandlike subsegmental atelectasis or scarring is seen at the lung bases bilaterally. A mildly prominent left epicardial fat pad is noted. No pleural effusions or pneumothorax. Central and peripheral airways are patent and normal in caliber. Mediastinum: Heart size is normal. No pericardial effusion. Mild coronary artery calcifications. No mediastinal adenopathy by size criteria. Main pulmonary artery measures approximately 3.3 cm in diameter, which can be seen in setting of pulmonary arterial hypertension. Thoracic aorta is normal in size with mild atherosclerotic calcifications. Esophagus is normal in caliber. No hiatal hernia. Chest wall: Moderate bilateral gynecomastia. No axillary or supraclavicular adenopathy by size criteria. Thyroid is unremarkable. ABDOMEN: Solid organs: Liver is enlarged and diffusely hypoattenuating, consistent with fatty infiltration. Gallbladder is unremarkable. Pancreas is normal in contours. Spleen is normal in size. No adrenal nodules. Both kidneys are normal in size, without hydronephrosis or nephrolithiasis. Peritoneum and bowel: Small and large bowel loops are normal in caliber and wall thickness. No free fluid or air. Nodes and vessels: No retroperitoneal or mesenteric adenopathy by size criteria. Moderate aortic atherosclerotic calcifications. Infrarenal abdominal aorta measures up to 2.6 cm in diameter. Miscellaneous: No ventral hernias. 1.3 cm subcutaneous nodule abutting the skin surface at the right lower chest is most likely a sebaceous cyst (image 46 of series 2). IMPRESSION: 1. Moderate bilateral gynecomastia, which likely corresponds to the radiographic abnormality seen on the exam from 09/05/2023. Recommend clinical correlation and possible workup for causes of gynecomastia if indicated clinically. 2. Hepatomegaly and diffuse hepatic steatosis. 3. Mild infrarenal abdominal aortic ectasia measuring up to 2.6 cm in diameter. 4. Subcutaneous 1.3 cm lesion abutting the skin at the right lower chest is most likely a sebaceous cyst, although correlation with clinical findings is recommended. 5. Main pulmonary artery measures 3.3 cm in diameter, which can be seen in the setting of pulmonary arterial hypertension. Approved by: Jean Dougherty M.D. on 09/26/2023 at 21:27
--- NOTE | 2023-09-26 | DI.RAD.S_ITS ---
PROCEDURE: XR HIP W PEL IF DONE BILAT 2V INDICATIONS: hip pain TECHNIQUE: AP pelvis with lateral view(s) of the bilateral hip(s). COMPARISON: None. FINDINGS: Bones: No acute fractures or dislocations. Pelvic ring appears intact. No suspicious bony lesions. Degenerative changes of the bilateral hip. Lower lumbar spondylosis. Soft tissues: The visualized bowel gas pattern is normal. No suspicious soft tissue calcifications. IMPRESSION: Bilateral hips without acute fracture or malalignment. Degenerative changes of the bilateral hips. Lower lumbar spondylosis. Dictated by: Henry Dawn M.D. on 09/26/2023 at 11:16 Approved by: Henry Dawn M.D. on 09/26/2023 at 11:17
== END ==
PROVIDERS: PCP Family Medicine; Referring Provider Family Medicine; Visit Provider Family Medicine
DX: J92.9 Pleural plaque without asbestos (principal); I77.811 Abdominal aortic ectasia; M47.816 Spondylosis without myelopathy or radiculopathy, lumbar region; K76.0 Fatty (change of) liver, not elsewhere classified; N62 Hypertrophy of breast; M25.559 Pain in unspecified hip; L98.9 Disorder of the skin and subcutaneous tissue, unspecified
CPT/HCPCS: 71250; 73521; 74150

== ENCOUNTER → 2023-10-17 08:47 | Outpatient (CLI) | payer MEDICARE, OTHER, SELFPAY ==
[2023-10-17 09:21] LABS: Add Manual Diff / Slide Review NO; Basophils Absolute Auto 100 /uL (0-100); Basophils Percent Auto 1.2 % (0-2); Eosinophils Absolute Auto 200 /uL (0-450); Eosinophils Percent Auto 4.8 % (2-4); Hematocrit 44.7 % (41-53); Hemoglobin 15.3 g/dL (13.5-17.5); Lymphocytes Absolute Auto 1200 /uL (1100-4500); Lymphocytes Percent Auto 25.2 % (25-40); Mean Corpuscular HGB Conc 34.2 % (30-36); Mean Corpuscular Hemoglobin 31.5 PG (26-34); Mean Corpuscular Volume 92.1 fL (80-100); Monocytes Absolute Auto 600 /uL (0-900); Monocytes Percent Auto 11.9 % (3-14); Neutrophils Absolute Auto 2600 /uL (1500-7000); Neutrophils Percent Auto 56.9 % (50-75); Platelet Count 179 X10^3/uL (150-400); Red Blood Cell Count 4.85 X10^6/uL (4.5-5.9); Red Cell Distribution Width 13.9 % (11.6-14.8); White Blood Cell Count 4.6 X10^3/uL (4.5-11.0)
[2023-10-17 09:33] LABS: Alanine Aminotransferase 38 IU/L (<50); Albumin 4.3 g/dL (3.5-5.0); Albumin Globulin Ratio 1.4 (1.0-2.8); Alkaline Phosphatase 134 U/L (38-126); Aspartate Aminotransferase 40 IU/L (17-59); Bilirubin Total 0.6 mg/dL (0.2-1.3); Blood Urea Nitrogen 13 mg/dL (9-20); Calcium 9.2 mg/dL (8.4-10.2); Carbon Dioxide 24 mmol/L (22-32); Chloride 103 mmol/L (98-107); Cholesterol 179 mg/dL (140-199); Estimated Glomerular Filt Rate > 60 mL/min (>60); Glucose 199 mg/dL (80-110); HDL Cholesterol 31 mg/dL (40-60); HEMOLYSIS < 15 (0-50); LDL Cholesterol Calculated 100 mg/dL (<100); Potassium 4.5 mmol/L (3.4-5.1); Sodium 137 mmol/L (137-145); Total Protein 7.3 g/dL (6.3-8.2); Triglycerides 240 mg/dL (35-150)
[2023-10-17 09:44] LABS: Vitamin D 25 Hydroxy (D3) 42.8 ng/mL (30.0-100.0)
[2023-10-17 10:21] LABS: Vitamin B12 467 pg/mL (239-931)
== END ==
PROVIDERS: PCP Family Medicine; Referring Provider Family Medicine; Visit Provider Family Medicine
DX: E11.65 Type 2 diabetes mellitus with hyperglycemia (principal); Z79.899 Other long term (current) drug therapy; I10 Essential (primary) hypertension; M54.16 Radiculopathy, lumbar region; E66.9 Obesity, unspecified; E55.9 Vitamin D deficiency, unspecified; M12.89 Other specific arthropathies, not elsewhere classified, multiple sites; E78.1 Pure hyperglyceridemia
CPT/HCPCS: 36415; 80053; 80061; 82306; 82607; 83036; 83735; 85025

== ENCOUNTER → 2023-12-06 10:31 | Outpatient (CLI) | payer MEDICARE, OTHER, SELFPAY ==
--- NOTE | 2023-12-06 10:35 | DI.RAD.S_ITS ---
PROCEDURE: XR CHEST 2V INDICATIONS: COUGH TECHNIQUE: 2 views of the chest were acquired. COMPARISON: [facility], CR, XR CHEST 2V, 09/05/2023, 8:40. FINDINGS: Surgical changes and devices: None. Lungs and pleura: Asymmetric left hemidiaphragm elevation, similar compared to prior. There is adjacent platelike atelectatic change. Mild diffuse interstitial prominence is stable. No acute consolidations or effusions. Mediastinum: Stable cardiomediastinal contour including a tortuous ascending thoracic aorta. No significant vascular congestion. Bones and chest wall: No suspicious bony abnormalities. Soft tissues appear unremarkable. IMPRESSION: No acute cardiopulmonary abnormality is seen. Chronic findings as above. Dictated by: Imelda Britt M.D. on 12/06/2023 at 14:45 Approved by: Imelda Britt M.D. on 12/06/2023 at 14:47
[2023-12-06 11:18] LABS: Add Manual Diff / Slide Review NO; Basophils Absolute Auto 100 /uL (0-100); Basophils Percent Auto 1.4 % (0-2); Eosinophils Absolute Auto 200 /uL (0-450); Eosinophils Percent Auto 4.1 % (2-4); Hematocrit 44.2 % (41-53); Hemoglobin 15.2 g/dL (13.5-17.5); Lymphocytes Absolute Auto 1100 /uL (1100-4500); Lymphocytes Percent Auto 22.5 % (25-40); Mean Corpuscular HGB Conc 34.3 % (30-36); Mean Corpuscular Hemoglobin 32.1 PG (26-34); Mean Corpuscular Volume 93.7 fL (80-100); Monocytes Absolute Auto 500 /uL (0-900); Monocytes Percent Auto 10.2 % (3-14); Neutrophils Absolute Auto 3000 /uL (1500-7000); Neutrophils Percent Auto 61.8 % (50-75); Platelet Count 178 X10^3/uL (150-400); Red Blood Cell Count 4.72 X10^6/uL (4.5-5.9); Red Cell Distribution Width 14.1 % (11.6-14.8); White Blood Cell Count 4.8 X10^3/uL (4.5-11.0)
[2023-12-06 11:34] LABS: Alanine Aminotransferase 27 IU/L (<50); Albumin 4.3 g/dL (3.5-5.0); Albumin Globulin Ratio 1.3 (1.0-2.8); Alkaline Phosphatase 97 U/L (38-126); Aspartate Aminotransferase 35 IU/L (17-59); BUN Creatinine Ratio 27.1 (6-22); Bilirubin Total 0.8 mg/dL (0.2-1.3); Blood Urea Nitrogen 13 mg/dL (9-20); Carbon Dioxide 24 mmol/L (22-32); Chloride 100 mmol/L (98-107); Cholesterol 163 mg/dL (140-199); Estimated Glomerular Filt Rate > 60 mL/min (>60); Globulin 3.3 g/dL (1.7-4.1); Glucose 219 mg/dL (80-110); HDL Cholesterol 28 mg/dL (40-60); HEMOLYSIS < 15 (0-50); LDL Cholesterol Calculated 74 mg/dL (<100); Magnesium 1.9 mg/dL (1.6-2.3); Potassium 4.3 mmol/L (3.4-5.1); Sodium 136 mmol/L (137-145); Total Protein 7.6 g/dL (6.3-8.2); Triglycerides 307 mg/dL (35-150)
[2023-12-06 11:38] LABS: Hemoglobin A1C% w Est Avg Glu 10.1 % (4.0-6.0)
[2023-12-06 12:09] LABS: Thyroid Stimulating Hormone 1.04 uIU/mL (0.47-4.68)
[2023-12-06 12:19] LABS: Vitamin B12 324 pg/mL (239-931)
== END ==
LOC: RAD 10:33
PROVIDERS: PCP Family Medicine; Referring Provider Family Medicine; Visit Provider Family Medicine
DX: R05.3 Chronic cough (principal); M54.50 Low back pain, unspecified; E11.65 Type 2 diabetes mellitus with hyperglycemia; E66.9 Obesity, unspecified; I10 Essential (primary) hypertension; Z79.899 Other long term (current) drug therapy
CPT/HCPCS: 36415; 71046; 80053; 80061; 82306; 82607; 83036; 83735; 84443; 85025

== ENCOUNTER 2024-01-04 14:08 | Emergency (ER) | payer MEDICARE, OTHER, SELFPAY ==
[2024-01-04 14:10] VITALS: BP 163/82; PULSE 64; RESP 18; TEMP 35.9; O2SAT 93; BMI 37.5
--- NOTE | 2024-01-04 14:37 | PC.NURSE ---
Addendum entered by Froylan Angeles R.N. 01/04/24 15:00: Pt also reports an aura prior to these events. Original Note: Pt reports intermittent episodes of bilateral arm jerking that worsens with laying flat. First episode was about 1 month ago with a total of 3 episodes in all. Pt reports last night it lasted more than 2 hours. Denies any chest pain, SOB or any other symptoms with episodes. Pt is A&Ox4. Pt has concerns it might be his medications. Provider made aware.
[2024-01-04 14:46] LABS: Add Manual Diff / Slide Review NO; Basophils Absolute Auto 100 /uL (0-100); Basophils Percent Auto 1.2 % (0-2); Eosinophils Absolute Auto 200 /uL (0-450); Eosinophils Percent Auto 2.7 % (2-4); Hematocrit 43.3 % (41-53); Hemoglobin 14.9 g/dL (13.5-17.5); Lymphocytes Absolute Auto 1200 /uL (1100-4500); Mean Corpuscular HGB Conc 34.4 % (30-36); Mean Corpuscular Hemoglobin 32.3 PG (26-34); Monocytes Absolute Auto 600 /uL (0-900); Neutrophils Absolute Auto 3900 /uL (1500-7000); Neutrophils Percent Auto 65.1 % (50-75); Platelet Count 172 X10^3/uL (150-400); Red Cell Distribution Width 13.5 % (11.6-14.8); White Blood Cell Count 5.9 X10^3/uL (4.5-11.0)
[2024-01-04 14:55] LABS: Alanine Aminotransferase 32 IU/L (<50); Albumin 4.3 g/dL (3.5-5.0); Albumin Globulin Ratio 1.3 (1.0-2.8); Alkaline Phosphatase 128 U/L (38-126); Aspartate Aminotransferase 38 IU/L (17-59); BUN Creatinine Ratio 30.4 (6-22); Bilirubin Total 0.5 mg/dL (0.2-1.3); Blood Urea Nitrogen 14 mg/dL (9-20); Calcium 9.2 mg/dL (8.4-10.2); Carbon Dioxide 23 mmol/L (22-32); Chloride 105 mmol/L (98-107); Estimated Glomerular Filt Rate > 60 mL/min (>60); Globulin 3.2 g/dL (1.7-4.1); Glucose 137 mg/dL (80-110); HEMOLYSIS < 15 (0-50); Potassium 4.1 mmol/L (3.4-5.1); Sodium 138 mmol/L (137-145); Total Protein 7.5 g/dL (6.3-8.2)
--- NOTE | 2024-01-04 15:04 | PC.NURSE ---
Pharmacist at bedside to review medications and answer patient questions.
--- NOTE | 2024-01-04 15:15 | ED.NEUROSD ---
HPI - Neuro Symptoms/Deficit <Allyson Rocha PA-C - Last Filed: 01/04/24 16:52> General Chief Complaint: Neuro Symptoms/Deficit Stated Complaint: poss reaction to medications Time Seen by Provider: 01/04/24 14:24 Source: patient Mode of arrival: Ambulatory History of Present Illness HPI Narrative: Patient is a 73-year-old male with chronic conditions HTN, peripheral neuropathy and diabetes presenting for evaluation of periodic to uncontrollable twitching of his arms. He states this is occurred 3 times over the last 3 months. He notes the 1st episode was 3 months ago. He states that he was driving and noticed his arm started to flap and shake. He states it was difficult to keep him still in keep his car straight. He states that it subsided within a few minutes on its own. He is uncertain of any trigger specifically. He does note an aura prior to this occurring the feeling like it is coming up to him. He went to see his primary care provider who advised him to follow up in the ER if it should occur again. Patient is uncertain if any further investigation at that time. He notes that it occurred last night around 10:00 p.m. while attempting to go to bed. He states he laid down on his left side and his right arm started twitching and flopping and his head as well started twitching. He states that this lasted about an hour and he was fighting to relax. He states he got up and lay down on the right side and the flapping and twitching continued in his left side. He reports that he got up and took 2 puffs of marijuana felt sleepy and was able to go to sleep with no more twitching and flopping. He denies any history of seizures. He does note that he has not aortic aneurysm. He reports feeling generally increased shortness of breath over the last year. His endorses increased memory deficits she has noticed where he does not remember thinks she thinks he or 2. He denies any chest pain, headache, vision change. He denies feeling hypoglycemic when these episodes occurred in his they seemed to self resolve it seemed unlikely to him. Related Data Home Medications Medication Instructions Recorded Confirmed Adults Multivitamin 1 tab DAILY 01/04/24 01/04/24 amlodipine 5 mg tablet 5 mg PO BID 01/04/24 01/04/24 celecoxib 200 mg capsule 200 mg PO PRN PRN per patient 01/04/24 01/04/24 empagliflozin 25 mg tablet 25 mg PO DAILY 01/04/24 01/04/24 (Jardiance) glipizide 10 mg tablet 10 mg PO DAILY 01/04/24 01/04/24 magnesium 250 mg tablet 250 mg PO DAILY 01/04/24 01/04/24 metformin 500 mg tablet 500 mg PO BID 01/04/24 01/04/24 milk thistle 500 mg capsule 1,000 mg PO DAILY 01/04/24 01/04/24 vitamin D3-vitamin K2 1 tab PO DAILY 01/04/24 01/04/24 Allergies Allergy/AdvReac Type Severity Reaction Status Date / Time No Known Drug Allergies Allergy Verified 02/21/23 11:06 Review of Systems <Allyson Rocha PA-C - Last Filed: 01/04/24 16:52> Review of Systems Narrative: See HPI Patient History <Allyson Rocha PA-C - Last Filed: 01/04/24 16:52> Social History Smoking Status: Former smoker Smoking Status: Former smoker alcohol intake frequency: holidays/special occasions only Substance Use Type: marijuana Exam <Allyson Rocha PA-C - Last Filed: 01/04/24 16:52> Initial Vital Signs Initial Vital Signs: Vital Signs Temperature 96.7 F L 01/04/24 14:10 Pulse Rate 64 01/04/24 14:10 Respiratory Rate 18 01/04/24 14:10 Blood Pressure 163/82 H 01/04/24 14:10 Pulse Oximetry 93 01/04/24 14:10 Oxygen Delivery Method Room Air 01/04/24 14:10 GENERAL: 73 year old patient appears stated age. Well-developed patient, in no acute distress. Articulation is clear, appropriate story telling, appropriate affect HEAD: Atraumatic. Normocephalic. EYES: Pupils equal round and reactive. Extraocular motions intact. No scleral icterus. No injection or drainage. No peripheral field of vision loss noted bilaterally. ENT: Nose without bleeding, purulent drainage. NECK: Trachea midline. Non tender. CARDIOVASCULAR: Regular rate and rhythm without murmurs, gallops, or rubs. RESPIRATORY: Clear to auscultation. Breath sounds equal bilaterally. No wheezes, rales, or rhonchi. GASTROINTESTINAL: Abdomen soft, non-tender, nondistended. EXTREMITIES: No edema or joint tenderness. 5/5 bilateral shoulder flexion extension strength, 5/5 bilateral elbow flexion extension strength, 5/5 bilateral operator specialist communications strength, 5/5 bilateral knee flexion extension strength present. Patient is able to extend bilateral arms out without drifting for over 10 seconds, BACK: Nontender without deformity or crepitance. No flank tenderness. NEURO: AOx3. CN 3-12 intact bilaterally, nose to finger coordination intact, VIKAS intact bilaterally, patient demonstrates straight gait with no balance concern, patient has negative Romberg SKIN: No rash or erythema of visible areas <Jazmine Ellison MD - Last Filed: 01/05/24 07:05> Initial Vital Signs Initial Vital Signs: Vital Signs Temperature 96.7 F L 01/04/24 14:10 Pulse Rate 64 01/04/24 14:10 Respiratory Rate 18 01/04/24 14:10 Blood Pressure 163/82 H 01/04/24 14:10 Pulse Oximetry 93 01/04/24 14:10 Oxygen Delivery Method Room Air 01/04/24 14:10 Course <Allyson Rocha PA-C - Last Filed: 01/04/24 16:52> Orders Ordered: ED Orders 01/04/24 14:38 CBC Auto Diff [Complete Blood Count AUTO DIFF] Stat CMP [Comprehensive Metabolic Panel] Stat Magnesium Stat 01/04/24 15:32 CT head/brain wo con Stat Vital Signs Vital signs: Vital Signs - 8 hr 01/04/24 14:10 Temperature 96.7 F L Pulse Rate 64 Respiratory Rate 18 Blood Pressure 163/82 H Pulse Oximetry 93 Oxygen Delivery Method Room Air <Jazmine Ellison MD - Last Filed: 01/05/24 07:05> Orders Ordered: ED Orders 01/04/24 14:38 CBC Auto Diff [Complete Blood Count AUTO DIFF] Stat CMP [Comprehensive Metabolic Panel] Stat Magnesium Stat 01/04/24 15:32 CT head/brain wo con Stat Vital Signs Vital signs: Vital Signs - 8 hr 01/04/24 14:10 Temperature 96.7 F L Pulse Rate 64 Respiratory Rate 18 Blood Pressure 163/82 H Pulse Oximetry 93 Oxygen Delivery Method Room Air MDM - Neuro Symptoms/Deficit <Allyson Rocha PA-C - Last Filed: 01/04/24 16:52> Lab Data 01/04/24 14:38 01/04/24 14:38 Labs: Lab Results 01/04/24 Range/Units 14:38 WBC 5.9 (4.5-11.0) X10^3/uL RBC 4.60 (4.5-5.9) X10^6/uL Hgb 14.9 (13.5-17.5) g/dL Hct 43.3 (41-53) % MCV 94.0 (80-100) fL MCH 32.3 (26-34) PG MCHC 34.4 (30-36) % RDW 13.5 (11.6-14.8) % Plt Count 172 (150-400) X10^3/uL Neut % (Auto) 65.1 (50-75) % Lymph % (Auto) 21.0 L (25-40) % Lipscomb % (Auto) 10.0 (3-14) % Eos % (Auto) 2.7 (2-4) % Baso % (Auto) 1.2 (0-2) % Neut # (Auto) 3900 (8096-9172) /uL Lymph # (Auto) 1200 (0949-5590) /uL Lipscomb # (Auto) 600 (0-900) /uL Eos # (Auto) 200 (0-450) /uL Baso # (Auto) 100 (0-100) /uL Sodium 138 (137-145) mmol/L Potassium 4.1 (3.4-5.1) mmol/L Chloride 105 (98-107) mmol/L Carbon Dioxide 23 (22-32) mmol/L BUN 14 (9-20) mg/dL Creatinine 0.46 L (0.66-1.25) mg/dL Estimated GFR > 60 (>60) mL/min BUN/Creatinine Ratio 30.4 H (6-22) Glucose 137 H (80-110) mg/dL Calcium 9.2 (8.4-10.2) mg/dL Magnesium 2.0 (1.6-2.3) mg/dL Total Bilirubin 0.5 (0.2-1.3) mg/dL AST 38 (17-59) IU/L ALT 32 (<50) IU/L Alkaline Phosphatase 128 H (38-126) U/L Total Protein 7.5 (6.3-8.2) g/dL Albumin 4.3 (3.5-5.0) g/dL Globulin 3.2 (1.7-4.1) g/dL Albumin/Globulin Ratio 1.3 (1.0-2.8) Imaging Data CT scan - head: Radiologist's Impression: PROCEDURE: CT HEAD/BRAIN WO CON INDICATIONS: uncontrolled bilateral arm movements occurring last night TECHNIQUE: Noncontrast 4.5 mm thick angled axial sections acquired from the foramen magnum to the vertex, with coronal and sagittal reformats. For radiation dose reduction, the following was used: automated exposure control, adjustment of mA and/or kV according to patient size. COMPARISON: None. FINDINGS: Image quality: Mild streak artifact can be seen through the skull base. CSF spaces: Basal cisterns are patent. No extra-axial fluid collections. The ventricles are symmetric in size and shape. Brain: No intracranial bleeds or masses. There is cerebral volume loss for age, with resultant ventricular and sulcal prominence. There are periventricular and deep white matter chronic small vessel ischemic changes. There is intracranial internal carotid artery atherosclerosis. Skull and face: Calvarium and visualized facial bones appear intact, without suspicious lesions. Sinuses: Visualized sinuses and mastoids are clear. IMPRESSION: Head CT within normal limits for age. To the limits of this noncontrast study, no findings masses or mass effect can be seen. Dictated by: Radu Hunt M.D. on 01/04/2024 at 15:13 Approved by: Radu Hunt M.D. on 01/04/2024 at 15:13 [facility] Narrative Medical decision making narrative: Patient is a 73-year-old male presenting for evaluation of shaking episode of duration 2 hours occurring last night. He described bilateral flapping of his hands. This is the 3rd episode of his kind which he described, with the 1st occurring 3 months ago. He is treated for diabetes with Jardiance, metformin and glipizide as well as high blood pressure with amlodipine. He also takes several vitamin supplements. At present time he denied chest pain headache vision change weakness. He did initially have some right-sided neck stiffness which has improved over the afternoon. He has a follow up appointment scheduled with his primary care provider this coming Saturday or Saturday. Lab work did not show any abnormality and CBC or CMP or magnesium levels. Head CT did not show any evidence of mass or lesion or acute ischemia. Multiple etiologies for patient's symptoms considered including, but not limited to: Malignancy, partial seizure, hypocalcemia, hyperglycemia. Discussed with patient that based upon lab work and imaging, he appears safe to discharge home today, but I cautioned him to continue prompt follow up with his primary care provider to continue investigating this new symptom. He is agreeable with plan of care. We did discuss that he should develop any chest pain severe headache, vision change worsening of his flapping and spasming, to follow up in the ER again for further evaluation. Consultations: Discussed case with Dr. Ellison, consulted pharmacist to come and review medications. Pharmacist reported that the main side effects be concerned about were hypoglycemia with no indication that the spasming/flapping would have come from his medication. Findings and discharge diagnosis discussed with patient/family followed by verbalization of understanding Return precautions discussed with patient/family whom verbalize understanding of diagnosis and plan <Jazmine Ellison MD - Last Filed: 01/05/24 07:05> Lab Data Labs: Lab Results 01/04/24 Range/Units 14:38 WBC 5.9 (4.5-11.0) X10^3/uL RBC 4.60 (4.5-5.9) X10^6/uL Hgb 14.9 (13.5-17.5) g/dL Hct 43.3 (41-53) % MCV 94.0 (80-100) fL MCH 32.3 (26-34) PG MCHC 34.4 (30-36) % RDW 13.5 (11.6-14.8) % Plt Count 172 (150-400) X10^3/uL Neut % (Auto) 65.1 (50-75) % Lymph % (Auto) 21.0 L (25-40) % Lipscomb % (Auto) 10.0 (3-14) % Eos % (Auto) 2.7 (2-4) % Baso % (Auto) 1.2 (0-2) % Neut # (Auto) 3900 (5690-0621) /uL Lymph # (Auto) 1200 (4751-5549) /uL Lipscomb # (Auto) 600 (0-900) /uL Eos # (Auto) 200 (0-450) /uL Baso # (Auto) 100 (0-100) /uL Sodium 138 (137-145) mmol/L Potassium 4.1 (3.4-5.1) mmol/L Chloride 105 (98-107) mmol/L Carbon Dioxide 23 (22-32) mmol/L BUN 14 (9-20) mg/dL Creatinine 0.46 L (0.66-1.25) mg/dL Estimated GFR > 60 (>60) mL/min BUN/Creatinine Ratio 30.4 H (6-22) Glucose 137 H (80-110) mg/dL Calcium 9.2 (8.4-10.2) mg/dL Magnesium 2.0 (1.6-2.3) mg/dL Total Bilirubin 0.5 (0.2-1.3) mg/dL AST 38 (17-59) IU/L ALT 32 (<50) IU/L Alkaline Phosphatase 128 H (38-126) U/L Total Protein 7.5 (6.3-8.2) g/dL Albumin 4.3 (3.5-5.0) g/dL Globulin 3.2 (1.7-4.1) g/dL Albumin/Globulin Ratio 1.3 (1.0-2.8) Discharge Plan Departure Patient Disposition: Home Clinical Impression: Episode of shaking Activity Restrictions/Additional Instructions: Thank you for coming in today for your care. To evaluate your episode of shaking last night, we evaluated blood work which indicated that your electrolytes were within normal limits. We consulted pharmacist to evaluate your medications did not notice any potential interaction which could cause the shaking you described. We also checked a CT of your head to evaluate for any possible structural abnormalities. The CT did not show any intracranial bleeds or acute ischemia or mass present. I recommend further follow up with her primary care provider this week to continue investigation of this new symptom you are experiencing. Please follow up in the ER if you should develop vision change, weakness, slurred speech or abrupt worsening of symptoms or other concerning signs or symptoms. It was a pleasure meeting you today. Prescriptions: No Action celecoxib 200 mg capsule 200 mg PO PRN PRN (Reason: per patient) glipizide 10 mg tablet 10 mg PO DAILY amlodipine 5 mg tablet 5 mg PO BID metformin 500 mg tablet 500 mg PO BID Rx Instructions: Pt reports only taking twice daily Jardiance 25 mg tablet 25 mg PO DAILY magnesium 250 mg Tablet 250 mg PO DAILY milk thistle 500 mg Capsule 1,000 mg PO DAILY Rx Instructions: give with meal/snack Adults Multivitamin 1 tab DAILY vitamin D3-vitamin K2 1 tab PO DAILY Referrals: Cristian Go MD [Primary Care Provider] - Stand Alone Forms: Patient Portal/API ED Sign-out <Jazmine Ellison MD - Last Filed: 01/05/24 07:05> Cosign ED Attending Ayah Attestation: I was immediately available in the department for consultation throughout this patient's visit. We discussed workup including ordering CT scan of the head to rule out acute neurologic findings. Jazmine Ellison MD
--- NOTE | 2024-01-04 15:32 | DI.CT.S_ITS ---
PROCEDURE: CT HEAD/BRAIN WO CON INDICATIONS: uncontrolled bilateral arm movements occurring last night TECHNIQUE: Noncontrast 4.5 mm thick angled axial sections acquired from the foramen magnum to the vertex, with coronal and sagittal reformats. For radiation dose reduction, the following was used: automated exposure control, adjustment of mA and/or kV according to patient size. COMPARISON: None. FINDINGS: Image quality: Mild streak artifact can be seen through the skull base. CSF spaces: Basal cisterns are patent. No extra-axial fluid collections. The ventricles are symmetric in size and shape. Brain: No intracranial bleeds or masses. There is cerebral volume loss for age, with resultant ventricular and sulcal prominence. There are periventricular and deep white matter chronic small vessel ischemic changes. There is intracranial internal carotid artery atherosclerosis. Skull and face: Calvarium and visualized facial bones appear intact, without suspicious lesions. Sinuses: Visualized sinuses and mastoids are clear. IMPRESSION: Head CT within normal limits for age. To the limits of this noncontrast study, no findings masses or mass effect can be seen. Dictated by: Radu Hunt M.D. on 01/04/2024 at 15:13 Approved by: Radu Hunt M.D. on 01/04/2024 at 15:13
[2024-01-04 16:52] VITALS: BP 142/65; PULSE 64; RESP 18; O2SAT 94
== END 2024-01-04 16:52 | disposition home or self-care (01) ==
PROVIDERS: Emergency Provider Physician Assistant; PCP Family Medicine
DX: R25.3 Fasciculation (principal)
CPT/HCPCS: 36415; 70450; 80053; 83735; 85025; 99281; 99284

== ENCOUNTER → 2024-01-12 10:17 | Outpatient (CLI) | payer MEDICARE, OTHER, SELFPAY ==
--- NOTE | 2024-01-12 | DI.CT.S_ITS ---
PROCEDURE: CT CERVICAL SPINE WO CON INDICATIONS: Cervicalgia TECHNIQUE: Noncontrast 3 mm thick sections acquired from the skull base to the T4 level. Sagittal and coronal reformats were then constructed. For radiation dose reduction, the following was used: automated exposure control, adjustment of mA and/or kV according to patient size. COMPARISON: None. FINDINGS: Image quality: Excellent. Bones: No fractures or dislocations. There are multilevel degenerative changes of the cervical spine with facet and uncovertebral arthropathy, disc height loss with degenerative endplate changes and spurring. This is most pronounced at C5-C6. Straightening of normal cervical lordosis. No significant osseous central canal stenosis throughout. Mild to moderate bilateral neural foraminal stenosis at C5-C6. Visualized superior ribs are intact. Soft tissues: Prevertebral soft tissues are normal in thickness. No paravertebral hematomas. No apical pneumothoraces. Atherosclerotic vascular calcifications. IMPRESSION: Degenerative changes of the cervical spine, most pronounced at C5-C6. No significant osseous central canal stenosis. [id number] bilateral neural foraminal stenosis at C5-C6. No high-grade osseous neural foraminal stenosis. Dictated by: Andres Terrazas M.D. on 01/12/2024 at 12:18 Approved by: Andres Terrazas M.D. on 01/12/2024 at 12:21
== END ==
PROVIDERS: PCP Family Medicine; Referring Provider Family Medicine; Visit Provider Family Medicine
DX: M47.812 Spondylosis without myelopathy or radiculopathy, cervical region (principal); M48.02 Spinal stenosis, cervical region; M54.2 Cervicalgia
CPT/HCPCS: 72125

== ENCOUNTER → 2024-03-24 11:42 | Outpatient (CLI) | payer MEDICARE, OTHER, SELFPAY ==
--- NOTE | 2024-03-24 11:43 | DI.CT.S_ITS ---
PROCEDURE: CT HEAD/BRAIN WO CON INDICATIONS: TREMORS TECHNIQUE: Noncontrast 4.5 mm thick angled axial sections acquired from the foramen magnum to the vertex, with coronal and sagittal reformats. For radiation dose reduction, the following was used: automated exposure control, adjustment of mA and/or kV according to patient size. COMPARISON: [facility], CT, CT HEAD/BRAIN WO CON, 01/04/2024, 15:41. FINDINGS: Image quality: Diagnostic. CSF spaces: Basal cisterns are patent. No extra-axial fluid collections. The ventricles are symmetric in size and shape. Brain: No intracranial bleeds or masses. There is cerebral volume loss for age, with resultant ventricular and sulcal prominence. There are periventricular and deep white matter chronic small vessel ischemic changes. There is intracranial internal carotid artery atherosclerosis. Skull and face: Calvarium and visualized facial bones appear intact, without suspicious lesions. Sinuses: Moderate mucosal thickening can be seen within the ethmoid air cells. There is a focal presumed mucous retention cyst within the sphenoid sinus anteriorly. The paranasal sinuses otherwise are within normal limits. No abnormal fluid is seen within the mastoid air cells. IMPRESSION: Noncontrast head CT within normal limits for age, without a cause of tremors identified. Paranasal sinus disease noted. Dictated by: Radu Hunt M.D. on 03/24/2024 at 12:07 Approved by: Radu Hunt M.D. on 03/24/2024 at 12:09
== END ==
LOC: CT 11:43
PROVIDERS: PCP Family Medicine; Referring Provider Family Medicine; Visit Provider Family Medicine
DX: R25.1 Tremor, unspecified (principal); I65.29 Occlusion and stenosis of unspecified carotid artery; J32.2 Chronic ethmoidal sinusitis
CPT/HCPCS: 70450

== ENCOUNTER → 2024-07-07 09:35 | Outpatient (CLI) | payer MEDICARE, OTHER, SELFPAY ==
[2024-07-07 10:15] LABS: Add Manual Diff / Slide Review NO; Basophils Absolute Auto 100 /uL (0-100); Basophils Percent Auto 1.2 % (0-2); Eosinophils Absolute Auto 200 /uL (0-450); Eosinophils Percent Auto 3.5 % (2-4); Hematocrit 44.1 % (41-53); Hemoglobin 15.2 g/dL (13.5-17.5); Lymphocytes Absolute Auto 1100 /uL (1100-4500); Lymphocytes Percent Auto 20.1 % (25-40); Mean Corpuscular HGB Conc 34.4 % (30-36); Mean Corpuscular Volume 93.1 fL (80-100); Monocytes Absolute Auto 500 /uL (0-900); Monocytes Percent Auto 9.5 % (3-14); Neutrophils Absolute Auto 3500 /uL (1500-7000); Neutrophils Percent Auto 65.7 % (50-75); Platelet Count 175 X10^3/uL (150-400); Red Blood Cell Count 4.74 X10^6/uL (4.5-5.9); Red Cell Distribution Width 13.1 % (11.6-14.8); White Blood Cell Count 5.3 X10^3/uL (4.5-11.0)
[2024-07-07 11:05] LABS: Vitamin D 25 Hydroxy (D3) 33.8 ng/mL (30.0-100.0)
[2024-07-07 11:10] LABS: Alanine Aminotransferase 32 IU/L (<50); Albumin 4.4 g/dL (3.5-5.0); Albumin Globulin Ratio 1.5 (1.0-2.8); Alkaline Phosphatase 125 U/L (38-126); Aspartate Aminotransferase 42 IU/L (17-59); BUN Creatinine Ratio 20.8 (6-22); Bilirubin Total 0.6 mg/dL (0.2-1.3); Blood Urea Nitrogen 11 mg/dL (9-20); Carbon Dioxide 25 mmol/L (22-32); Chloride 102 mmol/L (98-107); Cholesterol 150 mg/dL (140-199); Estimated Glomerular Filt Rate > 60 mL/min (>60); Globulin 2.9 g/dL (1.7-4.1); Glucose 201 mg/dL (80-110); HDL Cholesterol 28 mg/dL (40-60); HEMOLYSIS < 15 (0-50); LDL Cholesterol Calculated 67 mg/dL (<100); Potassium 4.5 mmol/L (3.4-5.1); Sodium 137 mmol/L (137-145); Total Protein 7.3 g/dL (6.3-8.2); Triglycerides 274 mg/dL (35-150)
[2024-07-07 11:58] LABS: Thyroid Stimulating Hormone 1.11 uIU/mL (0.47-4.68)
[2024-07-07 12:33] LABS: Folate > 20.0 ng/mL (2.76-20.0); Vitamin B12 319 pg/mL (239-931)
== END ==
PROVIDERS: PCP Family Medicine; Referring Provider Family Medicine; Visit Provider Family Medicine
DX: E66.9 Obesity, unspecified (principal); E11.65 Type 2 diabetes mellitus with hyperglycemia; I10 Essential (primary) hypertension; E55.9 Vitamin D deficiency, unspecified; G25.2 Other specified forms of tremor; M19.90 Unspecified osteoarthritis, unspecified site; R05.3 Chronic cough; E78.5 Hyperlipidemia, unspecified
CPT/HCPCS: 36415; 80053; 80061; 82306; 82607; 82746; 83036; 84443; 85025

== ENCOUNTER → 2024-10-19 07:48 | Outpatient (CLI) | payer MEDICARE, OTHER, SELFPAY ==
[2024-10-19 09:59] LABS: Add Manual Diff / Slide Review NO; Basophils Absolute Auto 0 /uL (0-100); Basophils Percent Auto 0.8 % (0-2); Eosinophils Absolute Auto 200 /uL (0-450); Eosinophils Percent Auto 3.9 % (2-4); Hematocrit 43.8 % (41-53); Hemoglobin 14.6 g/dL (13.5-17.5); Lymphocytes Absolute Auto 1100 /uL (1100-4500); Lymphocytes Percent Auto 24.5 % (25-40); Mean Corpuscular HGB Conc 33.2 % (30-36); Mean Corpuscular Hemoglobin 30.9 PG (26-34); Mean Corpuscular Volume 92.9 fL (80-100); Monocytes Absolute Auto 500 /uL (0-900); Monocytes Percent Auto 11.2 % (3-14); Neutrophils Absolute Auto 2700 /uL (1500-7000); Neutrophils Percent Auto 59.6 % (50-75); Platelet Count 184 X10^3/uL (150-400); Red Blood Cell Count 4.71 X10^6/uL (4.5-5.9); Red Cell Distribution Width 14.3 % (11.6-14.8); White Blood Cell Count 4.6 X10^3/uL (4.5-11.0)
[2024-10-19 10:19] LABS: Alanine Aminotransferase 27 IU/L (<50); Albumin 4.4 g/dL (3.5-5.0); Albumin Globulin Ratio 1.8 (1.0-2.8); Alkaline Phosphatase 114 U/L (38-126); Aspartate Aminotransferase 29 IU/L (17-59); BUN Creatinine Ratio 32.6 (6-22); Bilirubin Total 0.5 mg/dL (0.2-1.3); Blood Urea Nitrogen 15 mg/dL (9-20); Calcium 8.8 mg/dL (8.4-10.2); Carbon Dioxide 25 mmol/L (22-32); Chloride 105 mmol/L (98-107); Cholesterol 154 mg/dL (140-199); Estimated Glomerular Filt Rate > 60 mL/min (>60); Globulin 2.5 g/dL (1.7-4.1); Glucose 164 mg/dL (80-110); HDL Cholesterol 31 mg/dL (40-60); HEMOLYSIS < 15 (0-50); LDL Cholesterol Calculated 78 mg/dL (<100); Magnesium 1.9 mg/dL (1.6-2.3); Potassium 4.4 mmol/L (3.4-5.1); Sodium 137 mmol/L (137-145); Total Protein 6.9 g/dL (6.3-8.2); Triglycerides 225 mg/dL (35-150)
[2024-10-19 10:36] LABS: Vitamin D 25 Hydroxy (D3) 34.1 ng/mL (30.0-100.0)
[2024-10-19 10:50] LABS: Prostate Specific Antigen 0.729 ng/mL (0.10-4.00)
[2024-10-19 11:10] LABS: Vitamin B12 295 pg/mL (239-931)
== END ==
LOC: LAB 07:50
PROVIDERS: PCP Family Medicine; Referring Provider Family Medicine; Visit Provider Family Medicine
DX: E11.65 Type 2 diabetes mellitus with hyperglycemia (principal); Z79.899 Other long term (current) drug therapy; I10 Essential (primary) hypertension; Z13.0 Encounter for screening for diseases of the blood and blood-forming organs and certain disorders involving the immune mechanism; E78.1 Pure hyperglyceridemia; E11.42 Type 2 diabetes mellitus with diabetic polyneuropathy; Z12.5 Encounter for screening for malignant neoplasm of prostate; D51.9 Vitamin B12 deficiency anemia, unspecified; E55.9 Vitamin D deficiency, unspecified
CPT/HCPCS: 36415; 80053; 80061; 82306; 82607; 83036; 83735; 84153; 85025

== ENCOUNTER 2024-11-02 12:11 | Emergency (ER) | payer MEDICARE, OTHER, SELFPAY ==
[2024-11-02] VITALS (7 sets, daily range): BP systolic 155–170; BP diastolic 71–77; PULSE 64–73; RESP 16–26; TEMP 36.3; O2SAT 92–95; BMI 38.2
--- NOTE | 2024-11-02 12:22 | DI.RAD.S_ITS ---
PROCEDURE: XR CHEST 1V INDICATIONS: chest pain TECHNIQUE: One view of the chest was acquired. COMPARISON: [facility], CR, XR CHEST 2V, 12/06/2023, 10:49. FINDINGS: Surgical changes and devices: None. Lungs and pleura: Chronic appearing scarring/atelectasis at left lower lung field is again seen not significantly changed from prior study. No definite focal infiltrate. No pleural effusions or pneumothorax. Mediastinum: Mediastinal contours appear normal. Heart size is normal. Bones and chest wall: No suspicious bony lesions. Overlying soft tissues appear unremarkable. IMPRESSION: No acute cardiopulmonary pathology. No significant changes from previous study. Chronic appearing scarring/atelectasis in left lower lung field. Dictated by: Mitchell Frias M.D. on 11/02/2024 at 12:55 Approved by: Mitchell Frias M.D. on 11/02/2024 at 12:55
--- NOTE | 2024-11-02 12:23 | EKG_ITS ---
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
[2024-11-02 12:39] LABS: Add Manual Diff / Slide Review NO; Basophils Absolute Auto 100 /uL (0-100); Eosinophils Absolute Auto 200 /uL (0-450); Eosinophils Percent Auto 3.1 % (2-4); Hematocrit 43.4 % (41-53); Hemoglobin 14.6 g/dL (13.5-17.5); Lymphocytes Absolute Auto 1500 /uL (1100-4500); Lymphocytes Percent Auto 25.7 % (25-40); Mean Corpuscular HGB Conc 33.7 % (30-36); Mean Corpuscular Hemoglobin 31.5 PG (26-34); Mean Corpuscular Volume 93.5 fL (80-100); Monocytes Absolute Auto 600 /uL (0-900); Monocytes Percent Auto 9.4 % (3-14); Neutrophils Absolute Auto 3600 /uL (1500-7000); Neutrophils Percent Auto 60.8 % (50-75); Platelet Count 170 X10^3/uL (150-400); Red Blood Cell Count 4.64 X10^6/uL (4.5-5.9); Red Cell Distribution Width 14.2 % (11.6-14.8)
[2024-11-02 12:47] LABS: INR 1.1 (0.9-1.3); Prothrombin Time 12.5 SECONDS (9.4-12.5)
[2024-11-02 12:49] LABS: PTT Partial Thromboplastin Tim 32 SECONDS (25.1-36.5)
[2024-11-02 12:51] LABS: Alanine Aminotransferase 30 IU/L (<50); Albumin 4.4 g/dL (3.5-5.0); Albumin Globulin Ratio 1.5 (1.0-2.8); Alkaline Phosphatase 100 U/L (38-126); Aspartate Aminotransferase 34 IU/L (17-59); BUN Creatinine Ratio 30.6 (6-22); Bilirubin Total 0.5 mg/dL (0.2-1.3); Blood Urea Nitrogen 15 mg/dL (9-20); Calcium 8.9 mg/dL (8.4-10.2); Carbon Dioxide 24 mmol/L (22-32); Chloride 104 mmol/L (98-107); Creatine Kinase 39 U/L (55-170); Estimated Glomerular Filt Rate > 60 mL/min (>60); Globulin 2.9 g/dL (1.7-4.1); Glucose 158 mg/dL (80-110); Lipase 48 U/L (23-300); Magnesium 1.8 mg/dL (1.6-2.3); Potassium 4.1 mmol/L (3.4-5.1); Sodium 138 mmol/L (137-145); Total Protein 7.3 g/dL (6.3-8.2)
[2024-11-02 12:52] LABS: HEMOLYSIS < 15 (0-50)
[2024-11-02 13:01] LABS: NT-proBNP (BNP-Adult 18+) < 20 pg/mL (<125)
[2024-11-02 13:02] LABS: Troponin I < 0.012 ng/mL (0.01-0.034)
[2024-11-02 15:13] LABS: Troponin I < 0.012 ng/mL (0.01-0.034)
--- NOTE | 2024-11-02 16:10 | ED_ITS ---
HPI - Chest Pain General Chief Complaint: Chest Pain Stated Complaint: chest pain Time Seen by Provider: 11/02/24 16:09 History of Present Illness HPI narrative: 73-year-old male with no known history of coronary artery disease, has chronic back pain for which she is waiting to see a neurologist in spring 2024, has had recent anterior chest discomfort, not increased in his back, no associated nausea or vomiting, no associated diaphoresis. Symptoms not worse with changes in position or deep breathing. No particular maneuvers make the pain come or go. He can not recall any recent stress testing, it has been many many years. He saw his doctor earlier this morning and relayed these symptoms, who referred him here for further testing. He currently does not having any chest pain. Related Data Home Medications Medication Instructions Recorded Confirmed Adults Multivitamin 1 tab DAILY 01/04/24 01/04/24 amlodipine 5 mg tablet 5 mg PO BID 01/04/24 01/04/24 celecoxib 200 mg capsule 200 mg PO PRN PRN per patient 01/04/24 01/04/24 empagliflozin 25 mg tablet 25 mg PO DAILY 01/04/24 01/04/24 (Jardiance) glipizide 10 mg tablet 10 mg PO DAILY 01/04/24 01/04/24 magnesium 250 mg tablet 250 mg PO DAILY 01/04/24 01/04/24 metformin 500 mg tablet 500 mg PO BID 01/04/24 01/04/24 milk thistle 500 mg capsule 1,000 mg PO DAILY 01/04/24 01/04/24 vitamin D3-vitamin K2 1 tab PO DAILY 01/04/24 01/04/24 Allergies Allergy/AdvReac Type Severity Reaction Status Date / Time No Known Drug Allergies Allergy Verified 02/21/23 11:06 Patient History Social History Smoking Status: Former smoker Smoking Status: Former smoker alcohol intake frequency: holidays/special occasions only Exam Narrative Exam Narrative: GENERAL: Well-developed patient, in mild distress. HEAD: Atraumatic. Normocephalic. EYES: Pupils equal round and reactive. Extraocular motions intact. No scleral icterus. No injection or drainage. ENT: Nose without bleeding, purulent drainage. Throat without erythema, tonsillar hypertrophy or exudate. Airway patent. NECK: Trachea midline. Non tender CARDIOVASCULAR: Regular rate and rhythm without murmurs, gallops, or rubs. RESPIRATORY: Clear to auscultation. Breath sounds equal bilaterally. No wheezes, rales, or rhonchi. GASTROINTESTINAL: Abdomen soft, non-tender, nondistended. EXTREMITIES: No edema or joint tenderness. BACK: Nontender without deformity or crepitance. No flank tenderness. NEURO: AOx3. Motor functions grossly nonfocal SKIN: No rash or erythema of visible areas Initial Vital Signs Initial Vital Signs: Vital Signs Temperature 97.3 F L 11/02/24 12:22 Pulse Rate 73 11/02/24 12:22 Respiratory Rate 16 11/02/24 12:22 Blood Pressure 157/71 H 11/02/24 12:22 Pulse Oximetry 95 11/02/24 12:22 Oxygen Delivery Method Room Air 11/02/24 12:22 Course Orders Ordered: ED Orders 11/02/24 12:22 XR chest 1V Stat EKG-12 Lead Stat 11/02/24 12:30 Complete Blood Count AUTO DIFF Stat Comprehensive Metabolic Panel Stat Lipase Stat Magnesium Stat NT-proBNP (BNP-Adult 18+) Stat PTT Partial Thromboplastin Kiran Stat Prothrombin Time INR Stat Troponin & CK Cardiac Panel Stat 11/02/24 14:39 Trop I [Troponin I] Stat Discontinued Medications Aspirin (Aspirin 81 Mg Chew Tab) 324 mg PO NOW ONE Stop: 11/02/24 12:23 Last Admin: 11/02/24 15:05 Dose: Not Given Documented By: [place] Aspirin (Aspirin Ec 325 Mg Tablet) 325 mg PO NOW ONE Stop: 11/02/24 16:24 Last Admin: 11/02/24 16:30 Dose: 325 mg Documented By: BS Vital Signs Vital signs: Vital Signs - 8 hr 11/02/24 12:22 11/02/24 15:09 11/02/24 15:10 Temperature 97.3 F L Pulse Rate 73 Respiratory Rate 16 Blood Pressure 157/71 H 161/75 H Pulse Oximetry 95 92 Oxygen Delivery Method Room Air 11/02/24 15:10 11/02/24 15:30 11/02/24 15:31 Temperature Pulse Rate 68 66 Respiratory Rate 20 Blood Pressure 155/72 H Pulse Oximetry 93 Oxygen Delivery Method 11/02/24 15:31 11/02/24 16:00 11/02/24 16:01 Temperature Pulse Rate 64 65 65 Respiratory Rate 22 26 H 25 H Blood Pressure Pulse Oximetry 94 93 93 Oxygen Delivery Method 11/02/24 16:01 Temperature Pulse Rate Respiratory Rate Blood Pressure 170/77 H Pulse Oximetry Oxygen Delivery Method MDM - Chest Pain Lab Data Attestation: I reviewed the patient's lab results. Lab results narrative: White blood cell count 6000, hemoglobin 14.6, platelets adequate. Basic metabolic panel shows glucose 158 otherwise unremarkable. Liver functions negative, lipase normal. Troponin x2 sets negative/unmeasurable 11/02/24 12:30 11/02/24 12:30 Labs: Lab Results 11/02/24 11/02/24 Range/Units 12:30 14:39 WBC 6.0 (4.5-11.0) X10^3/uL RBC 4.64 (4.5-5.9) X10^6/uL Hgb 14.6 (13.5-17.5) g/dL Hct 43.4 (41-53) % MCV 93.5 (80-100) fL MCH 31.5 (26-34) PG MCHC 33.7 (30-36) % RDW 14.2 (11.6-14.8) % Plt Count 170 (150-400) X10^3/uL Neut % (Auto) 60.8 (50-75) % Lymph % (Auto) 25.7 (25-40) % [facility] % (Auto) 9.4 (3-14) % Eos % (Auto) 3.1 (2-4) % Baso % (Auto) 1.0 (0-2) % Neut # (Auto) 3600 (6828-8104) /uL Lymph # (Auto) 1500 (5921-6692) /uL [facility] # (Auto) 600 (0-900) /uL Eos # (Auto) 200 (0-450) /uL Baso # (Auto) 100 (0-100) /uL PT 12.5 (9.4-12.5) SECONDS INR 1.1 (0.9-1.3) APTT 32 (25.1-36.5) SECONDS Sodium 138 (137-145) mmol/L Potassium 4.1 (3.4-5.1) mmol/L Chloride 104 (98-107) mmol/L Carbon Dioxide 24 (22-32) mmol/L BUN 15 (9-20) mg/dL Creatinine 0.49 L (0.66-1.25) mg/dL Estimated GFR > 60 (>60) mL/min BUN/Creatinine Ratio 30.6 H (6-22) Glucose 158 H (80-110) mg/dL Calcium 8.9 (8.4-10.2) mg/dL Magnesium 1.8 (1.6-2.3) mg/dL Total Bilirubin 0.5 (0.2-1.3) mg/dL AST 34 (17-59) IU/L ALT 30 (<50) IU/L Alkaline Phosphatase 100 (38-126) U/L Total Creatine Kinase 39 L (55-170) U/L Troponin I < 0.012 < 0.012 (0.01-0.034) ng/mL NT-Pro-B Natriuret Pep < 20 (<125) pg/mL Total Protein 7.3 (6.3-8.2) g/dL Albumin 4.4 (3.5-5.0) g/dL Globulin 2.9 (1.7-4.1) g/dL Albumin/Globulin Ratio 1.5 (1.0-2.8) Lipase 48 (23-300) U/L Imaging Data Chest x-ray: Radiologist's Impression: [address] [address] XRay Report Signed Patient: Cristian Gaines MR#: [id number] : 1950 Acct:[id number] Age/Sex: 73 / M Date of Service: 11/02/24 Loc: ED Accession Number: [id number] Procedure: XR chest 1V Ordering Provider: Mac Jose MD PROCEDURE: XR CHEST 1V INDICATIONS: chest pain TECHNIQUE: One view of the chest was acquired. COMPARISON: [facility], CR, XR CHEST 2V, 12/06/2023, 10:49. FINDINGS: Surgical changes and devices: None. Lungs and pleura: Chronic appearing scarring/atelectasis at left lower lung field is again seen not significantly changed from prior study. No definite focal infiltrate. No pleural effusions or pneumothorax. Mediastinum: Mediastinal contours appear normal. Heart size is normal. Bones and chest wall: No suspicious bony lesions. Overlying soft tissues appear unremarkable. IMPRESSION: No acute cardiopulmonary pathology. No significant changes from previous study. Chronic appearing scarring/atelectasis in left lower lung field. Dictated by: Mitchell Frias M.D. on 11/02/2024 at 12:55 Approved by: Mitchell Frias M.D. on 11/02/2024 at 12:55 ECG Data Attestation: I personally reviewed and interpreted this ECG as follows: Interpretation: Normal sinus rhythm with rate of 73, no obvious ST segment elevation or depression changes. IN 140, QRS 92, QTC 449. MDM Narrative Medical decision making narrative: 73-year-old male with multiple cardiac risk factors, no known CAD, has had intermittent chest discomfort, has back pain ongoing for which he is waiting to see a neurologist, saw his PCP earlier today who referred him here for further testing. EKG without obvious ischemic changes. Initial troponin negative. Lipase negative. Chest x-ray unremarkable. Interval repeat troponin also negative/unmeasurable. No recurrence of chest discomfort. Same chronic back pain. Patient feels better, does not want any further workup for now, we would like to go home. Further workup as an outpatient for now. Given contact information for local correctional supervisor lieutenant on-call Dr. Barnes. Patient informed he might likely need a referral from his primary care provider, who might also choose a different cardiologists for follow up. Advised patient to take aspirin daily for now. Follow up with PCP for further coordination of Cardiology and other workup as needed as an outpatient. Return precautions discussed. Discharge Plan Departure Patient Disposition: Home Clinical Impression: Chest pain Activity Restrictions/Additional Instructions: Chest discomfort intermittent, currently resolved. Ongoing back pain for which you were waiting to see a neurologist. EKG today did not show any acute changes, serial blood tests did not show any evidence for heart attack at this time. Other screening labs unremarkable. You were given an oral aspirin. Please take an aspirin each day for now. Follow up with Cardiology for further workup, contact clinic information provided, though you might need referral from your primary care provider. Continue taking your chronic medications for now. Contact your regular provider tomorrow to arrange further follow up as an outpatient. Return to this/nearest emergency department for any change worsening symptoms or any concerns prior Prescriptions: No Action celecoxib 200 mg capsule 200 mg PO PRN PRN (Reason: per patient) glipizide 10 mg tablet 10 mg PO DAILY amlodipine 5 mg tablet 5 mg PO BID metformin 500 mg tablet 500 mg PO BID Rx Instructions: Pt reports only taking twice daily Jardiance 25 mg tablet 25 mg PO DAILY magnesium 250 mg Tablet 250 mg PO DAILY milk thistle 500 mg Capsule 1,000 mg PO DAILY Rx Instructions: give with meal/snack Adults Multivitamin 1 tab DAILY vitamin D3-vitamin K2 1 tab PO DAILY Referrals: Cristian Go MD [Primary Care Provider] - Nargis Barnes MD [Physician] - Stand Alone Forms: Patient Portal/API/Survey
[2024-11-02] MEDS: ASPIRIN EC 325 MG TABLET PO (16:30)
== END 2024-11-02 16:31 | disposition home or self-care (01) ==
PROVIDERS: Emergency Provider Emergency Medicine; PCP Family Medicine
DX: R07.9 Chest pain, unspecified (principal); M54.9 Dorsalgia, unspecified
CPT/HCPCS: 36415; 71045; 80053; 82550; 83690; 83735; 83880; 84484; 85025; 85610; 85730; 93005; 99284

== ENCOUNTER → 2025-03-15 08:54 | Outpatient (CLI) | payer MEDICARE, OTHER, SELFPAY ==
[2025-03-15 09:56] LABS: Add Manual Diff / Slide Review NO; Basophils Absolute Auto 100 /uL (0-100); Basophils Percent Auto 1.2 % (0-2); Eosinophils Absolute Auto 200 /uL (0-450); Eosinophils Percent Auto 4.8 % (2-4); Hematocrit 43.4 % (41-53); Hemoglobin 14.8 g/dL (13.5-17.5); Lymphocytes Absolute Auto 1100 /uL (1100-4500); Lymphocytes Percent Auto 22.3 % (25-40); Mean Corpuscular HGB Conc 34.2 % (30-36); Mean Corpuscular Hemoglobin 31.6 PG (26-34); Mean Corpuscular Volume 92.5 fL (80-100); Monocytes Absolute Auto 500 /uL (0-900); Monocytes Percent Auto 9.9 % (3-14); Neutrophils Absolute Auto 3000 /uL (1500-7000); Neutrophils Percent Auto 61.8 % (50-75); Platelet Count 147 X10^3/uL (150-400); Red Blood Cell Count 4.69 X10^6/uL (4.5-5.9); Red Cell Distribution Width 13.8 % (11.6-14.8); White Blood Cell Count 4.8 X10^3/uL (4.5-11.0)
[2025-03-15 10:03] LABS: Hemoglobin A1C% w Est Avg Glu 11.2 % (4.0-6.0)
[2025-03-15 10:18] LABS: Alanine Aminotransferase 34 IU/L (<50); Albumin 4.5 g/dL (3.5-5.0); Albumin Globulin Ratio 1.9 (1.0-2.8); Alkaline Phosphatase 171 U/L (38-126); Aspartate Aminotransferase 41 IU/L (17-59); BUN Creatinine Ratio 24.4 (6-22); Bilirubin Total 0.9 mg/dL (0.2-1.3); Blood Urea Nitrogen 11 mg/dL (9-20); Calcium 8.8 mg/dL (8.4-10.2); Carbon Dioxide 27 mmol/L (22-32); Chloride 99 mmol/L (98-107); Cholesterol 152 mg/dL (140-199); Estimated Glomerular Filt Rate > 60 mL/min (>60); Globulin 2.4 g/dL (1.7-4.1); Glucose 340 mg/dL (70-99); HDL Cholesterol 25 mg/dL (40-60); HEMOLYSIS < 15 (0-50); LDL Cholesterol Calculated 70 mg/dL (<100); Potassium 4.5 mmol/L (3.4-5.1); Sodium 134 mmol/L (137-145); Total Protein 6.9 g/dL (6.3-8.2); Triglycerides 287 mg/dL (35-150)
[2025-03-15 10:30] LABS: Vitamin D 25 Hydroxy (D3) 31.7 ng/mL (30.0-100.0)
[2025-03-15 10:45] LABS: Thyroid Stimulating Hormone 1.46 uIU/mL (0.47-4.68)
[2025-03-15 10:47] LABS: Prostate Specific Antigen Scrn 0.742 ng/mL (0.1-4.0)
[2025-03-15 11:04] LABS: Vitamin B12 366 pg/mL (239-931)
== END ==
PROVIDERS: PCP Family Medicine; Referring Provider Family Medicine; Visit Provider Family Medicine
DX: E11.65 Type 2 diabetes mellitus with hyperglycemia (principal); Z12.5 Encounter for screening for malignant neoplasm of prostate; E55.9 Vitamin D deficiency, unspecified; Z13.29 Encounter for screening for other suspected endocrine disorder
CPT/HCPCS: 36415; 80053; 80061; 82306; 82607; 83036; 84443; 85025; G0103

== ENCOUNTER → 2025-04-15 09:02 | Outpatient (CLI) | payer MEDICARE, OTHER, SELFPAY ==
--- NOTE | 2025-04-15 09:03 | DI.CT.S_ITS ---
PROCEDURE: CT CHEST WO CON INDICATIONS: Emphysema TECHNIQUE: Noncontrast 5 mm thick sections acquired from the pulmonary apices to the posterior costophrenic angles. 1 mm lung window, 5 mm thick coronal and sagittal and 7 mm axial MIP reformats were then acquired. For radiation dose reduction, the following was used: automated exposure control, adjustment of mA and/or kV according to patient size. COMPARISON: Prior CT chest 09/26/2023 report. FINDINGS: Image quality: Diagnostic. Moderate bilateral symmetric anterior chest wall soft tissue attenuation, gynecomastia unchanged. Mild linear and discoid atelectatic changes in the lower lobes new or increased. New mild bilateral perihilar and lower lobe peribronchial thickening some of which may be related to expiratory result although mild bronchitis, viral infection, asthma or other process could be considered. No pneumothorax, no pleural effusion, no pericardial effusion, no lobar consolidation. No significant COPD/emphysematous changes. Mild cardiomegaly, unchanged. Enlarged pulmonary artery outflow tract, right and left main pulmonary arteries measuring up to 3.5 cm, 3.1 cm, 3.1 cm diameter respectively , unchanged. Mild calcifications of the coronary arteries, aortic arch and descending aorta, unchanged. Nonspecific mild shift of the mediastinum towards the right, unchanged Mild degenerative changes of the thoracic spine without CT evidence of fracture, subluxation or central stenosis, unchanged. Moderate diffuse low-attenuation of the liver hepatic steatosis, unchanged. Mild nonspecific wall thickening of the distal esophagus into the stomach, unchanged, some of which may be artifact from partial nondistention although esophagitis, gastritis or other process could be considered. 1.7 cm low-attenuation subcutaneous cystic structure commonly sebaceous cyst right lower lateral chest wall was previously reported unchanged. Lower Neck: No enlarged lymph nodes. Thyroid: No thyroid nodules which require sonographic follow up, per consensus guidelines. Axillae: No enlarged lymph nodes. Thoracic Vessels: The aorta and pulmonary arteries demonstrate normal size. Mediastinum and Jessica: No enlarged lymph nodes. IMPRESSION: New mild bilateral peribronchial thickening and bibasilar subsegmental atelectasis. Enlarged pulmonary arteries possible pulmonary arterial hypertension, unchanged. Hepatic steatosis unchanged. Moderate gynecomastia, unchanged. Other findings as above unchanged Dictated by: Napoleon Martinez M.D. on 04/16/2025 at 8:51 Approved by: Napoleon Martinez M.D. on 04/16/2025 at 9:03
== END ==
PROVIDERS: PCP Family Medicine; Referring Provider Family Medicine; Visit Provider Family Medicine
DX: J43.9 Emphysema, unspecified (principal); J98.11 Atelectasis; I51.7 Cardiomegaly; I25.10 Atherosclerotic heart disease of native coronary artery without angina pectoris; M47.814 Spondylosis without myelopathy or radiculopathy, thoracic region; K76.9 Liver disease, unspecified; N62 Hypertrophy of breast
CPT/HCPCS: 71250